=== PATIENT | female | born 1940 | race Caucasian/White ===

== ENCOUNTER 2020-08-13 11:24 | Outpatient (REF) | payer MEDICARE, BC, SELFPAY ==
--- NOTE | 2020-08-13 11:29 | MM_ITS ---
EXAMINATION: MM DIAGNOSTIC DIGITAL BREAST TOMOSYNTHESIS, BILATERAL CLINICAL INFORMATION: Probable benign fibroglandular density left breast noted on prior study. Additional views and ultrasound unremarkable. Due for yearly. The lifetime risk of breast cancer based on the Tyrer-Cuzick Model is under 3%. COMPARISON: Mammography: 08/19/2019, 08/12/2019, 06/21/2018, 05/28/2017, 05/10/2016, 04/26/2015, 07/02/2014, 12/04/2013, 12/01/2013 TECHNIQUE: Digital breast tomosynthesis is performed in both the craniocaudal and mediolateral oblique views along with computer-aided detection (CAD). Synthesized 2D images are generated from the tomosynthesis. FINDINGS: There are scattered areas of fibroglandular density (ACR BI-RADS breast composition Category b). There are no significant masses, abnormal calcifications, or other abnormalities. Parenchymal pattern is similar to prior studies. There is no developing density from remote exams. No interval mass or architectural abnormality or abnormal calcifications. Skin contours are smooth. Results are provided to the patient at time of visit by the technologist. MM/MM tomosynthesis diagnostic BI IMPRESSION: No significant changes from prior studies. ASSESSMENT: BI-RADS 2: Benign RECOMMENDATION: Routine annual mammography screening. This patient's information was entered into a reminder system with a target due date for their next mammogram.
== END 2020-08-13 11:25 | disposition home or self-care (01) ==
LOC: HO.MAMMO 11:24
PROVIDERS: Visit Provider Internal Medicine
DX: R92.2 Inconclusive mammogram (principal)
CPT/HCPCS: 77062; 77066

== ENCOUNTER 2021-01-21 08:18 | Outpatient (REF) | payer MEDICARE, BC, SELFPAY ==
[2021-01-21 09:44] LABS: Alanine Aminotransferase 19 U/L (0-31); Anion Gap 10 (12-20); Aspartate Amino Transferase 18 U/L (5-31); Blood Urea Nitrogen 18 mg/dL (9-16); Calcium 9.4 mg/dL (8.4-10.2); Carbon Dioxide 35 mmol/L (22-29); Chloride 101 mmol/L (96-108); Cholesterol 222 mg/dL; Estimated Glomerular Filt Rate > 60; Glucose Fasting 89 mg/dL (60-99); HDL Cholesterol 55 mg/dL; LDL Cholesterol Calculated 152 mg/dl; Potassium 4.2 mmol/L (3.3-5.1); Sodium 142 mmol/L (135-145); Triglycerides 79 mg/dL
[2021-01-21 10:06] LABS: Vitamin D 25-OH Total 66.5 ng/mL (>30)
== END 2021-01-21 08:19 | disposition home or self-care (01) ==
LOC: HO.LAB 08:18
PROVIDERS: PCP Internal Medicine; Visit Provider Internal Medicine
DX: E78.5 Hyperlipidemia, unspecified (principal); M81.0 Age-related osteoporosis without current pathological fracture; I10 Essential (primary) hypertension; Z78.0 Asymptomatic menopausal state
CPT/HCPCS: 36415; 80048; 80061; 82306; 84450; 84460

== ENCOUNTER 2021-05-27 07:33 | Outpatient (REF) | payer MEDICARE, SELFPAY ==
[2021-05-27 09:04] LABS: Alanine Aminotransferase 16 U/L (0-31); Aspartate Amino Transferase 17 U/L (5-31); Cholesterol 200 mg/dL; HDL Cholesterol 51 mg/dL; LDL Cholesterol Calculated 137 mg/dl; Triglycerides 60 mg/dL
== END 2021-05-27 07:34 | disposition home or self-care (01) ==
LOC: HO.LAB 07:33
PROVIDERS: PCP Internal Medicine; Visit Provider Internal Medicine
DX: E78.5 Hyperlipidemia, unspecified (principal); I10 Essential (primary) hypertension
CPT/HCPCS: 36415; 80061; 84450; 84460

== ENCOUNTER 2021-08-23 09:56 | Outpatient (REF) | payer MEDICARE, SELFPAY ==
--- NOTE | ~2021-08-23 | MM_ITS ---
EXAMINATION: MM SCREENING DIGITAL BREAST TOMOSYNTHESIS, BILATERAL CLINICAL INFORMATION: Screening. Asymptomatic. The lifetime risk of breast cancer based on the Tyrer-Cuzick Model is 2%. COMPARISON: Mammography: 08/13/2020, 08/19/2019, 08/12/2019, 06/21/2018, 05/28/2017 TECHNIQUE: Digital breast tomosynthesis is performed in both the craniocaudal and mediolateral oblique views along with computer-aided detection (CAD). Synthesized 2D images are generated from the tomosynthesis. FINDINGS: There are scattered areas of fibroglandular density (ACR BI-RADS breast composition Category b). There are no significant masses, abnormal calcifications, or other abnormalities. No developing density. No significant changes from prior studies. MM/MM tomosynthesis screening BI IMPRESSION: No mammographic evidence of malignancy. ASSESSMENT: BI-RADS 1: Negative RECOMMENDATION: Routine annual mammography screening. This patient's information was entered into a reminder system with a target due date for their next mammogram.
--- NOTE | ~2021-08-23 | MM_ITS ---
EXAMINATION: BONE DENSITOMETRY CLINICAL INDICATION: Other specified disorders of bone density and structure. COMPARISON: Previous BD dated 08/12/2019 and baseline BD dated 07/19/2007. TECHNIQUE: Using a [employer] DXA System (software version: 13.1) manufactured by [employer], dual-energy x-ray absorptiometry was performed of the lumbar spine and left hip. The images are of good technical quality. Summary results are attached. FINDINGS: AP SPINE L1-L4: Current: BMD 0.943 g/cm2, Z-score 0.2, T-score -2.0, osteopenia, 2.7% increase from previous, 5.2% increase from baseline (<5% change is not significant). Prior: BMD 0.918 g/cm2. Baseline: BMD 0.896 g/cm2. LEFT FEMUR, NECK: Current: BMD 0.802 g/cm2, Z-score 0.6, T-score -1.7, osteopenia. Prior: BMD 0.792 g/cm2. Baseline: BMD 0.791 g/cm2. LEFT FEMUR, TOTAL: Current: BMD 0.850 g/cm2, Z-score 0.9, T-score -1.3, osteopenia, 1.7% decrease from previous, 0.4% increase from baseline (<5% change is not significant). Prior: BMD 0.865 g/cm2. Baseline: BMD 0.847 g/cm2. IDENTIFIED RISK FACTORS: Menopause, thiazide. HISTORY OF FRACTURE: None listed. MEDICATIONS: Calcium supplements or multivitamin, vitamin D, bisphosphonates. MM/XR DEXA axial skeleton IMPRESSION: 1. DIAGNOSIS: Osteopenia based on the lowest T-score value of -2.0 in the lumbar spine applying World Health Organization criteria. 2. 10-YEAR FRACTURE RISK PREDICTION, FRAX: Major osteoporotic fracture (clinical spine, forearm, hip or shoulder) 13.3%. Hip fracture 3.5%. 3. Treatment Recommendations: NOF guidelines recommend consideration for treatment in postmenopausal women and men age 50 and older presenting with the following: -A hip or vertebral (clinical or morphometric) fracture. -T-score less than or equal to -2.5 at the femoral neck or spine after appropriate evaluation to exclude secondary causes. -Low bone mass at the hip or spine and a 10-year fracture probability by FRAX of greater than or equal to 3% for hip fracture or greater than or equal to 20% for major osteoporotic fracture based on the [place] adapted WHO algorithm. 4. Other Recommendations: All treatment decisions require clinical judgment and consideration of individual patient factors, including patient preferences, comorbidities, previous drug use, risk factors not captured in the FRAX model (e.g. frailty, falls, vitamin D deficiency, increased bone turnover, interval significant decline in bone density) and possible under or overestimation of fracture risk by FRAX. Additional medical evaluation for secondary cause of low bone mineral density may be appropriate. FUTURE SCAN RECOMMENDATION: People with diagnosed cases of osteoporosis or at high risk for fracture should have regular bone mineral density tests. For patients eligible for Medicare, routine testing is allowed once every 2 years. The testing frequency can be increased to one year for patients who have rapidly progressing disease, those who are receiving or discontinuing medical therapy to restore bone mass, or have additional risk factors.
== END 2021-08-23 09:57 | disposition home or self-care (01) ==
LOC: HO.MAMMO 09:56
PROVIDERS: Visit Provider Internal Medicine
DX: Z13.820 Encounter for screening for osteoporosis (principal); Z78.0 Asymptomatic menopausal state; Z12.31 Encounter for screening mammogram for malignant neoplasm of breast
CPT/HCPCS: 77063; 77067; 77080

== ENCOUNTER 2021-12-09 08:14 | Outpatient (REF) | payer MEDICARE, SELFPAY ==
[2021-12-09 10:05] LABS: Alanine Aminotransferase 18 U/L (0-31); Anion Gap 9 (12-20); Aspartate Amino Transferase 19 U/L (5-31); Blood Urea Nitrogen 18 mg/dL (9-16); Calcium 9.9 mg/dL (8.4-10.2); Carbon Dioxide 35 mmol/L (22-29); Chloride 103 mmol/L (96-108); Cholesterol 219 mg/dL; Estimated Glomerular Filt Rate > 60; Glucose Fasting 88 mg/dL (60-99); HDL Cholesterol 52 mg/dL; LDL Cholesterol Calculated 151 mg/dl; Potassium 4.5 mmol/L (3.3-5.1); Sodium 142 mmol/L (135-145); Triglycerides 83 mg/dL
[2021-12-09 10:15] LABS: Vitamin D 25-OH Total 69.2 ng/mL (>30)
== END 2021-12-09 08:15 | disposition home or self-care (01) ==
LOC: HO.LAB 08:14
PROVIDERS: PCP Internal Medicine; Visit Provider Internal Medicine
DX: E78.5 Hyperlipidemia, unspecified (principal); I10 Essential (primary) hypertension; M85.80 Other specified disorders of bone density and structure, unspecified site; Z78.0 Asymptomatic menopausal state
CPT/HCPCS: 36415; 80048; 80061; 82306; 84450; 84460

== ENCOUNTER 2022-06-10 08:27 | Outpatient (REF) | payer MEDICARE, SELFPAY ==
[2022-06-10 09:55] LABS: Alanine Aminotransferase 14 U/L (0-31); Anion Gap 16 (12-20); Aspartate Amino Transferase 18 U/L (5-31); Blood Urea Nitrogen 15 mg/dL (9-16); Calcium 9.2 mg/dL (8.4-10.2); Carbon Dioxide 29 mmol/L (22-29); Chloride 100 mmol/L (96-108); Cholesterol 194 mg/dL; Estimated Glomerular Filt Rate > 60; Glucose Fasting 85 mg/dL (60-99); HDL Cholesterol 54 mg/dL; LDL Cholesterol Calculated 129 mg/dl; Potassium 4.1 mmol/L (3.3-5.1); Sodium 141 mmol/L (135-145); Triglycerides 55 mg/dL
[2022-06-10 10:21] LABS: Vitamin D 25-OH Total 56.5 ng/mL (>30)
== END 2022-06-10 08:28 | disposition home or self-care (01) ==
LOC: HO.LAB 08:27
PROVIDERS: PCP Internal Medicine; Visit Provider Internal Medicine
DX: E78.5 Hyperlipidemia, unspecified (principal); I10 Essential (primary) hypertension; M85.80 Other specified disorders of bone density and structure, unspecified site; Z78.0 Asymptomatic menopausal state
CPT/HCPCS: 36415; 80048; 80061; 82306; 84450; 84460

== ENCOUNTER 2022-08-29 10:30 | Outpatient (REF) | payer MEDICARE, SELFPAY ==
--- NOTE | ~2022-08-29 | MM_ITS ---
EXAMINATION: MM SCREENING DIGITAL BREAST TOMOSYNTHESIS, BILATERAL CLINICAL INFORMATION: Screening. Asymptomatic. COMPARISON: Mammography: August 23, 2021 and studies dating back to May 10, 2016 TECHNIQUE: Digital breast tomosynthesis is performed in both the craniocaudal and mediolateral oblique views along with computer-aided detection (CAD). Synthesized 2D images are generated from the tomosynthesis. FINDINGS: The breasts are heterogeneously dense, which may obscure small masses (ACR BI-RADS breast composition Category c). There are no significant masses, abnormal calcifications, or other abnormalities. MM/MM tomosynthesis screening BI IMPRESSION: No significant changes from prior exam. ASSESSMENT: BI-RADS 1: Negative RECOMMENDATION: Routine annual mammography screening. This patient's information was entered into a reminder system with a target due date for their next mammogram.
== END 2022-08-29 10:31 | disposition home or self-care (01) ==
LOC: HO.MAMMO 10:30
PROVIDERS: Visit Provider Internal Medicine
DX: Z12.31 Encounter for screening mammogram for malignant neoplasm of breast (principal)
CPT/HCPCS: 77063; 77067

== ENCOUNTER 2023-05-26 07:37 | Outpatient (REF) | payer MEDICARE, SELFPAY ==
[2023-05-26 08:59] LABS: Alanine Aminotransferase 15 U/L (0-31); Anion Gap 15 (12-20); Aspartate Amino Transferase 17 U/L (5-31); Blood Urea Nitrogen 17 mg/dL (9-16); Calcium 9.2 mg/dL (8.4-10.2); Carbon Dioxide 28 mmol/L (22-29); Chloride 103 mmol/L (96-108); Cholesterol 199 mg/dL; Estimated Glomerular Filt Rate > 60; Glucose Fasting 83 mg/dL (60-99); HDL Cholesterol 52 mg/dL; LDL Cholesterol Calculated 133 mg/dl; Potassium 4.5 mmol/L (3.3-5.1); Sodium 141 mmol/L (135-145); Triglycerides 72 mg/dL
[2023-05-26 09:06] LABS: Vitamin D 25-OH Total 75.1 ng/mL (>30)
== END 2023-05-26 07:38 | disposition home or self-care (01) ==
LOC: HO.LAB 07:37
PROVIDERS: PCP Internal Medicine; Visit Provider Internal Medicine
DX: E78.5 Hyperlipidemia, unspecified (principal); I10 Essential (primary) hypertension; M85.80 Other specified disorders of bone density and structure, unspecified site; Z78.0 Asymptomatic menopausal state
CPT/HCPCS: 36415; 80048; 80061; 82306; 84450; 84460

== ENCOUNTER 2023-06-14 12:52 | Outpatient (AMB) | payer MEDICARE, SELFPAY ==
[2023-06-14 13:02] VITALS: BP 130/70; PULSE 76; O2SAT 96; BMI 21.2
--- NOTE | 2023-06-14 13:02 | AM.OFFVISMDC ---
Intake Vital Signs 06/14/23 13:02 Height 5 ft 3 in Weight 119 lb 8 oz BMI 21.2 BP 130/70 Blood Pressure Location Rt brachial Position Sitting Pulse 76 Pulse Source Pulse Oximeter Pulse Oximetry (%) 96 Oxygen Delivery Method Room Air Intake Visit Reasons: AWV G0439 Allergies No Known Allergies [No Known Allergies*] Allergy (Verified 06/14/23 13:20) Medication List - Last Reconciled 06/14/23 by Анна Cardenas MD amlodipine 2.5 mg PO DAILY aspirin 81 mg PO DAILY cholecalciferol (vitamin D3) 25 mcg PO DAILY fosinopril 40 mg PO DAILY hydrochlorothiazide 25 mg PO QAM lifitegrast 5% drps ophthalmic (eye) ONCE penciclovir 1% (Denavir) 1 appl topical Q2H PRN 4 days Do you need a note to return to daycare/school/sports/work: No HPI AWV G0439 HPI Details SWV ? 82-year-old lady with hypertension, osteopenia, hyperlipidemia currently controlled with diet, and history of recurrent cold sores, here today for her subsequent annual wellness visit she has been feeling well no complaints at present time, up-to-date with her lipid and fasting glucose screening, which came back normal 05/26/2023, is up-to-date with her screening mammogram, due again in August 2022, and last bone density scan was done in 2020 due again early next year. She has been having colonoscopy but as per Dr. Boogie no need for further screening. She is up-to-date with all her vaccinations including her COVID vaccine but has not yet had the new booster. ? Medical / Social History Reviewed? Past Medical History ?Yes . ? [facility] of Care / Care Team list updated ?Yes . ? Surgical/Hospitalization History ?Yes . ? Current Medications (including OTC and supplements) ?Yes . ? Family History ?Yes . ? Tobacco Control form ?Yes . ? AUDIT-C (Alcohol use) form ?Yes . ? Illicit drug use in Social History ?Yes . ? Current diagnosis of depression? ?No ? Appropriate PHQ2/PHQ9 completed ?Yes . ? Data entered by ?Work Order Detailer and reviewed by provider ? Fall Risk ? Fall History? Have you had any falls with injury in the past year? ?No . ? Have you had two or more falls in the past year? ?No . ? Fall Risk Assessment: ?No falls in the past year . ? HRA filled out by the patient, reviewed by Provider and scanned. ? AWV ? Balance? Romberg ?Yes . ? Tandem walk ?Yes . ? Walk and Turn ?Yes . ? Rise from sit to stand ?Yes . ?Vision? Corrective lens ?no ? Vision screen ? Up-to-date, sees Dr. Blount ?Hearing? Whisper test ?pass . ?Written Plan?Completed. See Patient Documents.? [facility] Medical History (Updated 06/14/23 @ 14:23 by Анна Cardenas MD) Cataracts, bilateral Female sterility Hyperlipidemia LDL goal <130 Hypertension Menopause Osteopenia Recurrent cold sores Tubular adenoma of colon Surgical History History of cataract surgery Family History Father No problems noted. Mother No problems noted. Maternal Grandmother No problems noted. Maternal Aunt Mental health disorder Social History Housing: House Alcohol intake: current Patient Tobacco Use Status: Never used Tobacco e-Cigarette/Vaping Use: Never Used Current occupational status: disabled Cognitive needs: No Hearing needs: No Vision needs: Yes Female Reproductive History Menstrual Date of Mammogram: 08/29/22 Questionnaire Medicare Wellness Checkup [age] What gender do you identify with?: female During the past 4 weeks, how much have you been bothered by emotional problems such as feeling anxious, depressed, irritable, sad or downhearted, and blue?: not at all During the past 4 weeks, has your physical & emotional health limited your social activities with family, friends, neighbors, or groups?: not at all During the past 4 weeks, how much bodily pain have you generally had?: very mild pain During the past 4 weeks, was someone available to help you if you needed & wanted help?: yes, as much as I wanted During the past 4 weeks, what was the hardest physical activity you could do for at least 2 minutes?: heavy Can you get to places out of walking distance without help? (For eg., can you travel alone on buses, taxis or drive your car?): Yes Can you go shopping for groceries or clothes without someone's help?: Yes Can you prepare your own meals?: Yes Can you do your housework without help?: Yes Because of any health problems, do you need the help of another person with your personal care needs such as eating, bathing, dressing or getting around the house?: No Can you handle your own money without help?: Yes During the past 4 weeks, how would you rate your health in general?: excellent During the past 4 weeks how have things been going for you?: very well; could hardly better Are you having difficulties driving your car?: no Do you always fasten your seat belt when you are in a car?: yes, usually During past 4 weeks, have you been bothered by the following: never: Falling or dizzy when standing up, Sexual problems?, Trouble eating well?, Teeth or denture problems? and Problems using the telephone? and seldom: Tiredness or fatigue? Have you fallen 2 or more times in the past year?: Yes Are you a smoker?: no During the past 4 weeks, how many drinks of wine, beer, or other alcoholic beverages did you have?: 2-5 drinks per week Do you exercise for about 20 minutes 3 or more times a week?: yes, most of the time Have you been given information to help with the following?: no: Hazards in your house that might hurt you? and no: Keeping track of your medications? How often do you have trouble taking medicines the way you have been told to take them?: I always take medicine as prescribed How confident are you that you can control & manage most of your health problems?: very confident What is your race?: White Mini Mental State Exam (MMSE) Orientation What is the (year) (season) (date) (day) (month)?: year (2022), season (Summer), date (06/14/2023), day () and month (May) Where are we (state) (county) (town or city) (hospital) (floor)?: state ([place]), [facility]), town or city ([place]) and hospital/clinic ([facility]) Score Score: 9 Activity of Daily Living Bathing - sponge bath, tub bath or shower: receives no assistance (gets in/out by self, if usual bathing means Dressing - getting clothes from closets & drawers, including inner/outer garments & fasteners.: gets clothes & gets completely dressed without help Toileting - going to the 'toilet room' for urine/bowel elimination & cleaning self/arranging clothes: goes to toilet room, cleans self, arranges clothes without help Transfer: moves in & out of bed and chair without help (may use support object) Continence: controls urination/bowel movements completely by self Feeding: feeds self without help Total Score: 0 Information obtained from: patient Using telephone: independent Traveling: independent Shopping: independent Preparing meals: independent Housework: independent Taking medicine: independent Managing money: independent Physical Exam Vital Signs: Last Vital Signs Pulse 76 06/14/23 13:02 BP 130/70 06/14/23 13:02 Pulse Ox 96 06/14/23 13:02 Oxygen Delivery Method Room Air 06/14/23 13:02 BMI result Body Mass Index 21.2 Results Reviewed Results Reviewed: ENTERED: 05/26/[address] [facility] [address]: ORDERED: Met Prof Fast, AST, ALT, Lipid Panel, Vitamin D 25-OH Test Result Flag Reference Site Sodium 141 135-145 mmol/L Potassium 4.5 3.3-5.1 mmol/L CL 103 96-108 mmol/L CO2 28 22-29 mmol/L Gap 15 12-20 BUN 17 H 9-16 mg/dL Creat 0.71 0.5-1.4 mg/dL EGFR > 60 NOTE: For -[place] individuals, multiply the result by 1.210. Chronic Kidney Disease: Estimated GFR < 60 mL/min/1.73m2 Severe Kidney Disease: Estimated GFR < 15 mL/min/1.73m2 FBS 83 60-99 mg/dL CA 9.2 8.4-10.2 mg/dL AST (GOT) 17 5-31 U/L ALT (GPT) 15 0-31 U/L Triglyceride 72 mg/dL Desirable Triglyceride: less than 150 mg/dL Borderline High Triglyceride 150-199 mg/dL High Triglyceride: 200-499 mg/dL Very High Triglyceride: greater than or equal to 5OO mg/dL Chol 199 mg/dL Desirable Cholesterol: less than 200 mg/dL Borderline High Cholesterol: 200-239 mg/dL High Cholesterol: greater than 239 mg/dL LDL Calculated 133 mg/dl Desirable LDL: less than 100 mg/dL Near Optimal/Above Optimal LDL: 110-129 mg/dL Borderline High LDL: 130-159 mg/dL High LDL: 160-189 mg/dL Very High LDL: greater than or equal to 190 mg/dL HDL 52 mg/dL Desirable HDL: greater than 40 mg/dL Note: This HDL assay may give artificially low results in patients with liver disease. Vit D 25-OH Tot 75.1 >30 ng/mL Health Based Reference Values* < 20 ng/mL Deficient 20-30 ng/mL Insufficient > 30 ng/mL Sufficient Assessment & Plan Assessment & Plan (1) Encounter for subsequent annual wellness visit (AWV) in Medicare patient: Code(s): Z00.00 - Encounter for general adult medical examination without abnormal findings Plan: Medical wellness checklist reviewed, updated in discussed with patient. Reminded to get her COVID booster and yearly flu shot (2) Hyperlipidemia LDL goal <130: Code(s): E78.5 - Hyperlipidemia, unspecified Plan: Fasting lipids are within normal limits, continue with regular exercise and healthy diet, attends the osteoporosis exercise class at [facility] (3) Osteopenia: Code(s): M85.80 - Other specified disorders of bone density and structure, unspecified site Plan: Recheck another bone density scan next year continue with regular weight-bearing exercise, taking adequate calcium from dietary sources and vitamin-D supplement (4) Recurrent cold sores: 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 Continue with frozen approve 40 mg daily and hydrochlorothiazide 25 mg in the morning and amlodipine 2.5 mg daily. Reinforced importance of following a low sodium diet, getting regular exercise, and lowering stress levels. (6) Advanced directives, counseling/discussion: Code(s): Z71.89 - Other specified counseling Plan: Initiated the conversation about Advanced Directives. Advanced Directives help patients prepare for current and future decisions about their medical treatment and place of care. Discussed with patient that it is a process where a patients current condition and prognosis are reviewed, their wishes for information regarding their illness are elicited, and likely medical dilemmas are presented and options discussed. MOLST and healthcare proxy form already completed and scanned into medic record. These forms can be amended as needed, reviewed yearly and make changes as needed Orders: Orders Alanine Aminotransferase 12/17/23 E78.5 - Hyperlipidemia, unspecified, I10 - Essential (primary) hypertension, M85.80 - Other specified disorders of bone density and structure, unspecified site, Z78.0 - Asymptomatic menopausal state Aspartate Amino Transferase 02/26/24 E78.5 - Hyperlipidemia, unspecified, I10 - Essential (primary) hypertension, M85.80 - Other specified disorders of bone density and structure, unspecified site, Z78.0 - Asymptomatic menopausal state Basic Metabolic Panel Fasting 12/17/23 E78.5 - Hyperlipidemia, unspecified, I10 - Essential (primary) hypertension, M85.80 - Other specified disorders of bone density and structure, unspecified site, Z78.0 - Asymptomatic menopausal state Lipid Panel 12/17/23 E78.5 - Hyperlipidemia, unspecified, I10 - Essential (primary) hypertension, M85.80 - Other specified disorders of bone density and structure, unspecified site, Z78.0 - Asymptomatic menopausal state Vitamin D 25-OH Total 12/17/23 E78.5 - Hyperlipidemia, unspecified, I10 - Essential (primary) hypertension, M85.80 - Other specified disorders of bone density and structure, unspecified site, Z78.0 - Asymptomatic menopausal state Coding Level of Care Code Medicare Subsequent (G0439) Diagnoses Encounter for subsequent annual wellness visit (AWV) in Medicare patient Z00.00 Hyperlipidemia LDL goal <130 E78.5 Osteopenia M85.80 Recurrent cold sores B00.1 Hypertension I10 Advanced directives, counseling/discussion Z71.89 CPT Codes Advance Care Planning - Time spent: 16-45 minutes ([id number]) Advance Care Planning Advance Care Planning discussion: Completed/Scanned Date of discussion: 06/14/23 Who was present: Patient Forms completed: Health Care Proxy and MOLST Time spent: 16-45 minutes
== END 2023-06-14 13:53 | disposition home or self-care (01) ==
PROVIDERS: Visit Provider Internal Medicine
DX: Z00.00 Encounter for general adult medical examination without abnormal findings (principal); I10 Essential (primary) hypertension; E78.5 Hyperlipidemia, unspecified; M85.80 Other specified disorders of bone density and structure, unspecified site; B00.1 Herpesviral vesicular dermatitis; Z71.89 Other specified counseling
CPT/HCPCS: 99497; G0439

== ENCOUNTER 2023-09-04 10:18 | Outpatient (REF) | payer MEDICARE, SELFPAY | END 2023-09-04 10:19 | disposition home or self-care (01) | LOC: HO.MAMMO 10:18 | PROVIDERS: Visit Provider Internal Medicine | DX: Z12.31 Encounter for screening mammogram for malignant neoplasm of breast (principal) | CPT/HCPCS: 77063; 77067 ==

== ENCOUNTER → 2023-09-04 10:30 | Outpatient (BNV) | payer MEDICARE, SELFPAY | PROVIDERS: Visit Provider Radiology Diagnostic Radiology | DX: Z12.31 Encounter for screening mammogram for malignant neoplasm of breast (principal) | CPT/HCPCS: 77063; 77067 ==

== ENCOUNTER 2023-11-28 09:58 | Outpatient (REF) | payer MEDICARE, SELFPAY ==
--- NOTE | ~2023-11-28 | MM_ITS ---
EXAMINATION: BONE DENSITOMETRY CLINICAL INDICATION: Osteopenia. COMPARISON: Previous BD dated 08/23/2021 and baseline BD dated 07/19/2007. TECHNIQUE: Using a [employer] DXA System (software version: 13.1) manufactured by [employer], dual-energy x-ray absorptiometry was performed of the lumbar spine and left hip. The images are of good technical quality. Summary results are attached. FINDINGS: LEFT FEMUR, NECK: Current: BMD 0.770 g/cm2, Z-score 0.5, T-score -1.9, osteopenia. Prior: BMD 0.802 g/cm2. Baseline: BMD 0.791 g/cm2. LEFT FEMUR, TOTAL: Current: BMD 0.849 g/cm2, Z-score 1.1, T-score -1.3, osteopenia, 0.1% decrease from previous, 0.2% increase from baseline (<5% change is not significant). Prior: BMD 0.850 g/cm2. Baseline: BMD 0.847 g/cm2. AP SPINE L1-L4: Current: BMD 0.843 g/cm2, Z-score -0.6, T-score -2.8, osteoporosis, 10.6% decrease from previous, 5.9% decrease from baseline (<5% change is not significant). Prior: BMD 0.943 g/cm2. Baseline: BMD 0.896 g/cm2. IDENTIFIED RISK FACTORS: Menopause, height loss, thiazide. HISTORY OF FRACTURE: None listed. MEDICATIONS: Calcium, vitamin D, bisphosphonate. MM/XR DEXA axial skeleton IMPRESSION: 1. DIAGNOSIS: Osteoporosis based on the lowest T-score value of -2.8 in the lumbar spine applying World Health Organization criteria. 2. 10-YEAR FRACTURE RISK PREDICTION, FRAX: According to the guidelines, FRAX calculation should only be performed on patients in the osteopenia bone density category. Therefore, FRAX was not performed on this patient. 3. Treatment Recommendations: NOF guidelines recommend consideration for treatment in postmenopausal women and men age 50 and older presenting with the following: -A hip or vertebral (clinical or morphometric) fracture. -T-score less than or equal to -2.5 at the femoral neck or spine after appropriate evaluation to exclude secondary causes. -Low bone mass at the hip or spine and a 10-year fracture probability by FRAX of greater than or equal to 3% for hip fracture or greater than or equal to 20% for major osteoporotic fracture based on the [place] adapted WHO algorithm. 4. Other Recommendations: All treatment decisions require clinical judgment and consideration of individual patient factors, including patient preferences, comorbidities, previous drug use, risk factors not captured in the FRAX model (e.g. frailty, falls, vitamin D deficiency, increased bone turnover, interval significant decline in bone density) and possible under or overestimation of fracture risk by FRAX. Additional medical evaluation for secondary cause of low bone mineral density may be appropriate. FUTURE SCAN RECOMMENDATION: People with diagnosed cases of osteoporosis or at high risk for fracture should have regular bone mineral density tests. For patients eligible for Medicare, routine testing is allowed once every 2 years. The testing frequency can be increased to one year for patients who have rapidly progressing disease, those who are receiving or discontinuing medical therapy to restore bone mass, or have additional risk factors.
== END 2023-11-28 09:59 | disposition home or self-care (01) ==
LOC: HO.MAMMO 09:58
PROVIDERS: PCP Internal Medicine; Visit Provider Internal Medicine
DX: Z13.820 Encounter for screening for osteoporosis (principal); M85.80 Other specified disorders of bone density and structure, unspecified site; Z78.0 Asymptomatic menopausal state
CPT/HCPCS: 77080

== ENCOUNTER 2023-11-30 07:58 | Outpatient (REF) | payer MEDICARE, SELFPAY ==
[2023-11-30 09:17] LABS: Alanine Aminotransferase 18 U/L (0-31); Anion Gap 12 (12-20); Aspartate Amino Transferase 17 U/L (5-31); Blood Urea Nitrogen 14 mg/dL (9-16); Calcium 9.5 mg/dL (8.4-10.2); Carbon Dioxide 31 mmol/L (22-29); Chloride 102 mmol/L (96-108); Cholesterol 209 mg/dL (<200); Estimated Glomerular Filt Rate > 60; Glucose Fasting 93 mg/dL (60-99); HDL Cholesterol 60 mg/dL (>40); LDL Cholesterol Calculated 137 mg/dL (<100); Potassium 4.1 mmol/L (3.3-5.1); Sodium 141 mmol/L (135-145); Triglycerides 62 mg/dL (<150)
[2023-11-30 09:33] LABS: Vitamin D 25-OH Total 62.5 ng/mL (>30)
== END 2023-11-30 07:59 | disposition home or self-care (01) ==
LOC: HO.LAB 07:58
PROVIDERS: PCP Internal Medicine; Visit Provider Internal Medicine
DX: E78.5 Hyperlipidemia, unspecified (principal); M85.80 Other specified disorders of bone density and structure, unspecified site; I10 Essential (primary) hypertension; Z78.0 Asymptomatic menopausal state
CPT/HCPCS: 36415; 80048; 80061; 82306; 84450; 84460

== ENCOUNTER 2023-12-10 11:15 | Outpatient (AMB) | payer MEDICARE, SELFPAY ==
[2023-12-10 11:17] VITALS: BP 144/66; PULSE 64; O2SAT 98; BMI 21.4
--- NOTE | 2023-12-10 11:17 | MHC.PC.OV ---
Vital Signs 12/10/23 11:17 Height 5 ft 3 in Weight 121 lb BMI 21.4 BP 144/66 H Blood Pressure Location Lt brachial Position Sitting Pulse 64 Pulse Source Pulse Oximeter Pulse Oximetry (%) 98 Oxygen Delivery Method Room Air Intake Visit Reasons: 6 mo. f/u Intake Note: Pt is here today for her 6 mo. f/u labs Allergies No Known Allergies [No Known Allergies*] Allergy (Verified 12/10/23 11:45) Medication List - Last Reconciled 12/10/23 by Анна Cardenas MD amlodipine 2.5 mg PO DAILY aspirin 81 mg PO DAILY cholecalciferol (vitamin D3) 25 mcg PO DAILY fosinopril 40 mg PO DAILY hydrochlorothiazide 25 mg PO QAM lifitegrast 5% drps ophthalmic (eye) ONCE penciclovir 1% (Denavir) 1 appl topical Q2H PRN 4 days Tobacco use date assessed: 12/10/23 Fall risk assessment: No Falls in past year Last assessed Fall Risk: 12/10/23 Dental Screening Dental Screen Date: 12/10/23 Did you have a dental visit in the last 12 months?: Yes Did you have a dental problem in the last 6 months where you did not have access to dental care?: Yes Was dental information given to patient?: Patient has dentist HPI 6 mo. f/u HPI Details 83-year-old lady with hypertension, hyperlipidemia, here today for follow-up. She has been taking her medications as directed, admits to not getting much exercise lately. Blood pressure a little higher today as compared to last check. She is also here to discuss results of her bone density scan done earlier this month go to which showed presence of osteoporosis now in her lumbar spine. No history of fracture [facility] [place] Medical History (Updated 02/07/24 @ 16:18 by Анна Cardenas MD) Osteoporosis of lumbar spine Hyperlipidemia LDL goal <130 Osteopenia Recurrent cold sores Menopause Tubular adenoma of colon Hypertension Cataracts, bilateral Female sterility Surgical History History of cataract surgery Family History Father No problems noted. Mother No problems noted. Maternal Grandmother No problems noted. Maternal Aunt Mental health disorder Social History Housing: House Alcohol intake: current Patient Tobacco Use Status: Never used Tobacco e-Cigarette/Vaping Use: Never Used Current occupational status: disabled Cognitive needs: No Hearing needs: No Vision needs: Yes Questionnaire PHQ-9 Over the last 2 weeks, how often have you been bothered by any of the following problems? 1. Little interest or pleasure in doing things: not at all 2. Feeling down, depressed, or hopeless: not at all 3. Trouble falling or staying asleep, or sleeping too much: not at all 4. Feeling tired or having little energy: not at all 5. Poor appetite or overeating: not at all 6. Feeling bad about yourself - or that you are a failure or have let yourself or your family down: not at all 7. Trouble concentrating on things, such as reading the newspaper or watching television: not at all 8. Moving or speaking so slowly that other people could have noticed. Or the opposite - being so fidgety or restless that you have been moving around a lot more than usual: not at all 9. Thoughts that you would be better off or of hurting yourself in some way: not at all Total score: 0 Depression Screening Interpretation: Negative Depression Screening Done: Yes 95360 - PHQ-9 Billing: Yes Source: Developed by Drs. Beau Rousseau, Patricia Lind, Elier Hudson and colleagues, with an educational rand from [email or web address]. Thrive Questionnaire Date Thrive assessed: 12/10/23 I am a: Patient What is your living situation today?: I have a steady place to live Within the past 12 months, did the food you bought not last and you didn't have the money to get more?: Never true Within the past 12 months, did you worry whether your food would run out before you got money to buy more?: Never true Do you have trouble paying for medicines?: No Do you have trouble getting transportation to medical appointments?: No Do you have trouble paying your heating and electricity bill?: No Do you have trouble taking care of your child, family member or friend?: No Do you have trouble with day-to-day activities such as bathing, preparing meals, shopping, managing finances, etc.?: No Are you currently unemployed and looking for a job?: No Are you interested in more education?: No Please select the resources that you would like help with: None Currently or been in a relationship where the following occur: no concerns reported THRIVE Score: 0 AUDIT C Alcohol Use Questionnaire (AUDIT-C) 1. How often do you have a drink containing alcohol?: 2-3 times a week 2. How many drinks containing alcohol do you have on a typical day when you are drinking?: 1 or 2 3. How often do you have six or more drinks on one occasion?: Never Total Score: 3 PAVEL-7 AMB Questionnaire PAVEL-7 Date PAVEL - 7 assessed: 12/10/23 Feeling nervous, anxious, or on edge: 1 = Several days Not being able to stop or control worryin = Not at all Worrying too much about different things: 0 = Not at all Trouble relaxin = Not at all Being so restless that it is hard to sit still: 0 = Not at all Becoming easily annoyed or irritable: 0 = Not at all Feeling afraid as if something awful might happen: 0 = Not at all Total PAVEL-7 score (0-4 normal; 5-9 mild; 10-14 moderate; 15-21 severe): 1 Source: Developed by Drs. Beau Rousseau, Patricia Lind, Elier Hudson and colleagues, with an educational rand from [email or web address]. PAVEL-7 Assessment Billing PAVEL-7 Assessment Tool: PAVEL-7 Assessment 98905 Review of Systems Const Reports no additional complaints and Denies headache(s) Eyes Denies change in vision ENT Denies ear discharge, Denies otalgia, Denies headache(s), Denies post nasal drip and Denies tinnitus Card Denies chest pain, Denies syncope, Denies rapid heart rate, Denies irregular heart rhythm, Reports palpitations (Occasional skipped beats) and Denies dyspnea on exertion Resp Denies dyspnea on exertion GI Reports no additional complaints Reports no additional complaints Musc Reports no additional complaints Neuro Denies syncope and Denies headache(s) Psych Reports no additional complaints Endo Reports palpitations (Occasional skipped beats) Vicente/Lymph Reports no additional complaints Aller/Immun Reports no additional complaints Physical exam (Primary Care) Vital Signs: Last Vital Signs Pulse 64 12/10/23 11:17 BP 144/66 H 12/10/23 11:17 Pulse Ox 98 12/10/23 11:17 Oxygen Delivery Method Room Air 12/10/23 11:17 BMI result Body Mass Index 21.4 Tobacco/Smoking Status: Tobacco use Status Tobacco use date assessed 12/10/23 12/10/23 11:19 Patient Tobacco Use Status Never used Tobacco 12/10/23 11:18 e-Cigarette/Vaping Use Never Used 12/10/23 11:18 PHQ-9: PHQ-9 Score PHQ-9: Total score 0 02/07/24 16:14 Depression Screening Interpretation: Negative Thrive Assessment: Date of Thrive Assessment Date Thrive assessed 12/10/23 12/10/23 12:16 Currently or been in a relationship where the following occur: no concerns reported Const Other: Alert oriented x3, no acute distress noted ambulatory normal gait Nutritional Appearance: average body habitus Orientation/consciousness: patient oriented x3 [facility] General nose exam: Normal external nose present Face and sinus: Yes face symmetric Mouth: Normal oral and palatal mucosa present and moist mucous membranes Eyes General: appearance normal, both eyes and all related structures Neck Neck: Yes full ROM, Yes no lymphadenopathy, Yes no meningeal signs and Yes supple Resp Auscultation: clear to auscultation bilaterally Cardio Other: S1-S2 present regular rate and rhythm GI Palpation (GI): Soft to palpation, nontender and no guarding Auscultation: normal bowel sounds General: Yes no CVA tenderness Back/Spine/Pelvis Back: no CVA tenderness and No back tenderness Skin General skin exam: no rashes or lesions noted Neuro General: patient oriented x3, gait normal, tone normal, moves all extremities, Normal light touch and pain sensation, no meningeal signs and normal sensation to monofilament Extrem General: Yes normal to inspection, Yes full ROM, Yes no joint enlargement, Yes no clubbing, cyanosis or edema and Yes normal gait Right upper extremity: normal to inspection, full ROM and no joint enlargement; no edema Results Reviewed Results Reviewed: ENTERED: 11/30/23-801 TANNER GASTON: ORDERED: Met Prof Fast, AST, ALT, Lipid Panel, Vitamin D 25-OH Test Result Flag Reference Sodium 141 135-145 mmol/L Potassium 4.1 3.3-5.1 mmol/L CL 102 96-108 mmol/L CO2 31 H 22-29 mmol/L Gap 12 12-20 BUN 14 9-16 mg/dL Creat 0.74 0.5-1.4 mg/dL EGFR > 60 NOTE: For -Citizen Of [place] individuals, multiply the result by 1.210. Chronic Kidney Disease: Estimated GFR < 60 mL/min/1.73m2 Severe Kidney Disease: Estimated GFR < 15 mL/min/1.73m2 FBS 93 60-99 mg/dL CA 9.5 8.4-10.2 mg/dL AST (GOT) 17 5-31 U/L ALT (GPT) 18 0-31 U/L Triglyceride 62 <150 mg/dL Desirable Triglyceride: less than 150 mg/dL Borderline High Triglyceride 150-199 mg/dL High Triglyceride: 200-499 mg/dL Very High Triglyceride: greater than or equal to 5OO mg/dL Cholesterol 209 H <200 mg/dL Desirable Cholesterol: less than 200 mg/dL Borderline High Cholesterol: 200-239 mg/dL High Cholesterol: greater than 239 mg/dL LDL Calculated 137 H <100 mg/dL Desirable LDL: less than 100 mg/dL Near Optimal/Above Optimal LDL: 110-129 mg/dL Borderline High LDL: 130-159 mg/dL High LDL: 160-189 mg/dL Very High LDL: greater than or equal to 190 mg/dL HDL 60 >40 mg/dL Desirable HDL: greater than 40 mg/dL Note: This HDL assay may give artificially low results in patients with liver disease. Vit D 25-OH Tot 62.5 >30 ng/mL Health Based Reference Values* < 20 ng/mL Deficient 20-30 ng/mL Insufficient > 30 ng/mL Sufficient Assessment and Plan Assessment & Plan (1) Hypertension: Code(s): I10 - Essential (primary) hypertension Qualifiers: Hypertension type: primary hypertension Qualified Code(s): I10 - Essential (primary) hypertension Plan: Will continue fosinopril 40 mg daily and hydrochlorothiazide 25 mg in the morning, and amlodipine 2.5 mg daily . Reinforced importance of following a low-salt diet and continuing with regular daily exercise. (2) Osteoporosis of lumbar spine: Code(s): M81.0 - Age-related osteoporosis without current pathological fracture Plan: Discussed results of latest bone density scan with patient, and treatment options, patient opted to start alendronate. Pt advised to upon waking up in am, take medication 30 minutes before first food/drink/med. and do not lay down for 1 hour after taking medication.. Discussed potential side effects with pt including but not limited to dysphagia, esophygitis and gastritis. Pt advised to stop medication and call office if developes any adverse side effects including dysphagia, esophygeal pain or abdominal pain. Ca and Vit D supplements if inadequate dietary intake. Repeat DEXA in a year . Continue taking vitamin-D 3 supplements at least 2000 units daily and adequate calcium from dietary sources in addition to doing regular weight-bearing exercise (3) Hyperlipidemia LDL goal <130: Code(s): E78.5 - Hyperlipidemia, unspecified Plan: Reviewed recent fasting lipid profile with patient with LDL cholesterol at 137 mg/dL. But HDL within normal limits as well as triglycerides. . Continue with a low-cholesterol diet and regular exercise, at least 30 minutes 3 to 4 times a week. Continue make healthy food choices, eat more fruits, vegetables, whole grains, wild caught fish and low-fat dairy. Limit amount of meat and fried or fatty food products, as well as processed foods and fast foods. Follow-up scheduled with repeat fasting lipid panel in 6 months. Medications: New alendronate 70 mg PO QWEEK 13 tabs 4RF 3 months M81.0 - Age-related osteoporosis without current pathological fracture Coding Level of Care Code Est Pt Level 4 (71890) Diagnoses Primary hypertension I10 Hypertension type: primary hypertension Osteoporosis of lumbar spine M81.0 Hyperlipidemia LDL goal <130 E78.5 Additional Codes PAVEL-7 Assessment Billing - PAVEL-7 Assessment Tool: PAVEL-7 Assessment 16512 ([id number])
== END 2023-12-10 12:15 | disposition home or self-care (01) ==
PROVIDERS: PCP Internal Medicine; Visit Provider Internal Medicine
DX: I10 Essential (primary) hypertension (principal); M81.0 Age-related osteoporosis without current pathological fracture; E78.5 Hyperlipidemia, unspecified
CPT/HCPCS: 99214

== ENCOUNTER 2024-05-31 07:55 | Outpatient (REF) | payer MEDICARE, SELFPAY ==
[2024-05-31 09:12] LABS: Alanine Aminotransferase 21 U/L (0-31); Anion Gap 11 (12-20); Aspartate Amino Transferase 21 U/L (5-31); Blood Urea Nitrogen 18 mg/dL (9-16); Calcium 9.2 mg/dL (8.4-10.2); Carbon Dioxide 32 mmol/L (22-29); Chloride 103 mmol/L (96-108); Cholesterol 205 mg/dL (<200); Estimated Glomerular Filt Rate > 60; Glucose Fasting 94 mg/dL (60-99); HDL Cholesterol 58 mg/dL (>40); LDL Cholesterol Calculated 135 mg/dL (<100); Potassium 3.8 mmol/L (3.3-5.1); Sodium 142 mmol/L (135-145); Triglycerides 64 mg/dL (<150)
[2024-05-31 09:26] LABS: Vitamin D 25-OH Total 70.1 ng/mL (>30)
== END 2024-05-31 07:56 | disposition home or self-care (01) ==
LOC: HO.LAB 07:55
PROVIDERS: PCP Internal Medicine; Visit Provider Internal Medicine
DX: I10 Essential (primary) hypertension (principal); M81.0 Age-related osteoporosis without current pathological fracture; Z78.0 Asymptomatic menopausal state; M85.80 Other specified disorders of bone density and structure, unspecified site; E78.5 Hyperlipidemia, unspecified
CPT/HCPCS: 36415; 80048; 80061; 82306; 84450; 84460

== ENCOUNTER 2024-08-28 15:20 | Outpatient (AMB) | payer MEDICARE, SELFPAY ==
[2024-08-28 15:52] VITALS: BP 122/66; PULSE 61; O2SAT 97; BMI 22.0
--- NOTE | 2024-08-28 15:52 | MHC.PC.OV ---
Vital Signs 08/28/24 15:52 Height 5 ft 3 in Weight 124 lb BMI 22.0 BP 122/66 Blood Pressure Location Rt brachial Position Sitting Pulse 61 Pulse Source Pulse Oximeter Pulse Oximetry (%) 97 Oxygen Delivery Method Room Air Intake Visit Reasons: follow up HTN Intake Note: Pt is here today for her f/u 05/2024 Allergies No Known Allergies [No Known Allergies*] Allergy (Verified 08/31/24 14:06) Medication List - Last Reconciled 08/31/24 by Анна Cardenas MD alendronate 70 mg PO QWEEK 3 months amlodipine 2.5 mg PO DAILY aspirin 81 mg PO DAILY cholecalciferol (vitamin D3) 25 mcg PO DAILY fosinopril 40 mg PO DAILY hydrochlorothiazide 25 mg PO QAM lifitegrast 5% drps ophthalmic (eye) ONCE penciclovir 1% (Denavir) 1 appl topical Q2H PRN 4 days Tobacco use date assessed: 08/28/24 Fall risk assessment: No Falls in past year Last assessed Fall Risk: 08/28/24 Dental Screening Dental Screen Date: 08/28/24 Did you have a dental visit in the last 12 months?: Yes Did you have a dental problem in the last 6 months where you did not have access to dental care?: No Was dental information given to patient?: Patient has dentist HPI follow up HTN HPI Details 83-year-old lady with hypertension, hyperlipidemia, and osteoporosis here today for follow-up. She has been compliant with taking her medications, was started on alendronate on last visit with no adverse effects noted. She also states that she has been taking some vitamins to help with osteoporosis. Feels well with no complaints at present time. [facility] Medical History (Updated 08/31/24 @ 14:14 by Анна Cardenas MD) Encounter for monitoring alendronate therapy Osteoporosis of lumbar spine Hyperlipidemia LDL goal <130 Recurrent cold sores Menopause Tubular adenoma of colon Hypertension Cataracts, bilateral Female sterility Surgical History History of cataract surgery Family History Father No problems noted. Mother No problems noted. Maternal Grandmother No problems noted. Maternal Aunt Mental health disorder Social History Housing: House Alcohol intake: current Patient Tobacco Use Status: Never used Tobacco e-Cigarette/Vaping Use: Never Used Current occupational status: disabled Cognitive needs: No Hearing needs: No Vision needs: Yes Questionnaire PHQ-9 Over the last 2 weeks, how often have you been bothered by any of the following problems? 1. Little interest or pleasure in doing things: not at all 2. Feeling down, depressed, or hopeless: not at all 3. Trouble falling or staying asleep, or sleeping too much: not at all 4. Feeling tired or having little energy: not at all 5. Poor appetite or overeating: not at all 6. Feeling bad about yourself - or that you are a failure or have let yourself or your family down: not at all 7. Trouble concentrating on things, such as reading the newspaper or watching television: not at all 8. Moving or speaking so slowly that other people could have noticed. Or the opposite - being so fidgety or restless that you have been moving around a lot more than usual: not at all 9. Thoughts that you would be better off or of hurting yourself in some way: not at all Total score: 0 Depression Screening Interpretation: Negative Depression Screening Done: Yes 46851 - PHQ-9 Billing: Yes Source: Developed by Drs. Beau Rousseau, Patricia Lind, Elier Hudson and colleagues, with an educational rand from [employer]. Thrive Questionnaire Date Thrive assessed: 08/28/24 I am a: Patient What is your living situation today?: I have a steady place to live Within the past 12 months, did the food you bought not last and you didn't have the money to get more?: Never true Within the past 12 months, did you worry whether your food would run out before you got money to buy more?: Never true Do you have trouble paying for medicines?: No Do you have trouble getting transportation to medical appointments?: No Do you have trouble paying your heating and electricity bill?: No Do you have trouble taking care of your child, family member or friend?: No Do you have trouble with day-to-day activities such as bathing, preparing meals, shopping, managing finances, etc.?: No Are you currently unemployed and looking for a job?: No Are you interested in more education?: No Please select the resources that you would like help with: None Currently or been in a relationship where the following occur: No concerns reported THRIVE Score: 0 AUDIT C Alcohol Use Questionnaire (AUDIT-C) 1. How often do you have a drink containing alcohol?: 2-3 times a week 2. How many drinks containing alcohol do you have on a typical day when you are drinking?: 1 or 2 3. How often do you have six or more drinks on one occasion?: Never Total Score: 3 PAVEL-7 AMB Questionnaire PAVEL-7 Date PAVEL - 7 assessed: 08/28/24 Feeling nervous, anxious, or on edge: 0 = Not at all Not being able to stop or control worryin = Not at all Worrying too much about different things: 0 = Not at all Trouble relaxin = Not at all Being so restless that it is hard to sit still: 0 = Not at all Becoming easily annoyed or irritable: 0 = Not at all Feeling afraid as if something awful might happen: 0 = Not at all Total PAVEL-7 score (0-4 normal; 5-9 mild; 10-14 moderate; 15-21 severe): 0 Source: Developed by Drs. Beau Rousseau, Patricia Lind, Elier Hudson and colleagues, with an educational rand from [employer]. PAVEL-7 Assessment Billing PAVEL-7 Assessment Tool: PAVEL-7 Assessment 00447 Review of Systems Const Reports no additional complaints Eyes Denies change in vision ENT Reports no additional complaints Card Denies chest pain, Denies syncope, Denies rapid heart rate, Denies irregular heart rhythm and Denies dyspnea on exertion Resp Denies dyspnea on exertion GI Reports no additional complaints Reports no additional complaints Musc Reports no additional complaints Neuro Denies syncope Psych Reports no additional complaints Vicente/Lymph Reports no additional complaints Aller/Immun Reports no additional complaints Physical exam (Primary Care) Vital Signs: Last Vital Signs Pulse 61 08/28/24 15:52 BP 122/66 08/28/24 15:52 Pulse Ox 97 08/28/24 15:52 Oxygen Delivery Method Room Air 08/28/24 15:52 BMI result Body Mass Index 22.0 Tobacco/Smoking Status: Tobacco use Status Tobacco use date assessed 08/28/24 08/28/24 15:56 Patient Tobacco Use Status Never used Tobacco 08/28/24 15:56 e-Cigarette/Vaping Use Never Used 08/28/24 15:56 PHQ-9: PHQ-9 Score PHQ-9: Total score 0 08/28/24 16:27 Depression Screening Interpretation: Negative Thrive Assessment: Date of Thrive Assessment Date Thrive assessed 08/28/24 08/28/24 15:56 Currently or been in a relationship where the following occur: No concerns reported Const Other: Alert oriented x3, no acute distress noted ambulatory normal gait Nutritional Appearance: average body habitus Orientation/consciousness: patient oriented x3 [facility] General nose exam: Normal external nose present Face and sinus: Yes face symmetric Mouth: Normal oral and palatal mucosa present and moist mucous membranes Eyes General: appearance normal, both eyes and all related structures Neck Neck: Yes full ROM, Yes no lymphadenopathy and Yes supple Resp Auscultation: clear to auscultation bilaterally Cardio Other: S1-S2 present regular rate and rhythm GI Palpation (GI): Soft to palpation, nontender and no guarding Auscultation: normal bowel sounds General: Yes no CVA tenderness Back/Spine/Pelvis Back: no CVA tenderness and No back tenderness Skin General skin exam: no rashes or lesions noted Neuro General: patient oriented x3, gait normal, tone normal, moves all extremities and Normal light touch and pain sensation Extrem General: Yes normal to inspection, Yes full ROM, Yes no joint enlargement, Yes no clubbing, cyanosis or edema and Yes normal gait Right upper extremity: normal to inspection, full ROM and no joint enlargement; no edema Coding Level of Care Code Est Pt Level 4 (16605) Complex EM visit Add On G2211 Diagnoses Osteoporosis of lumbar spine M81.0 Encounter for monitoring alendronate therapy Z51.81; Z79.83 Dyslipidemia E78.5 Primary hypertension I10 Hypertension type: primary hypertension Additional Codes PHQ-9 - 01623 - PHQ-9 Billing: Yes ([id number]) PAVEL-7 Assessment Billing - PAVEL-7 Assessment Tool: PAVEL-7 Assessment 17198 ([id number]) Assessment & Plan Assessment & Plan (1) Osteoporosis of lumbar spine: Code(s): M81.0 - Age-related osteoporosis without current pathological fracture Category: Medical Plan: Continue alendronate, weight-bearing exercise, calcium and vitamin-D supplements. 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 Continue with low-cholesterol diet and regular exercise, at least 30 minutes 3 to 4 times a week. Repeat fasting lipid panel ordered (4) Hypertension: Code(s): I10 - Essential (primary) hypertension Category: Medical Qualifiers: Hypertension type: primary hypertension Qualified Code(s): I10 - Essential (primary) hypertension Plan: Blood pressure at goal of less than 130/80. Continue with current medication. Reinforced importance of following a low sodium diet, getting regular exercise, and lowering stress levels. 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 Aspartate Amino Transferase 08/28/24 E78.5 - Hyperlipidemia, unspecified, I10 - Essential (primary) hypertension, M81.0 - Age-related osteoporosis without current pathological fracture, Z51.81 - Encounter for therapeutic drug level monitoring, Z78.0 - Asymptomatic menopausal state, Z79.83 - [facility] (current) use of bisphosphonates XR DEXA axial skeleton 11/30/24 M81.0 - Age-related osteoporosis without current pathological fracture, Z51.81 - Encounter for therapeutic drug level monitoring, 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 Vitamin D 25-OH Total 08/28/24 E78.5 - Hyperlipidemia, unspecified, I10 - Essential (primary) hypertension, M81.0 - Age-related osteoporosis without current pathological fracture, Z51.81 - Encounter for therapeutic drug level monitoring, Z78.0 - Asymptomatic menopausal state, 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 Alanine Aminotransferase 08/28/24 E78.5 - Hyperlipidemia, unspecified, I10 - Essential (primary) hypertension, M81.0 - Age-related osteoporosis without current pathological fracture, Z51.81 - Encounter for therapeutic drug level monitoring, Z78.0 - Asymptomatic menopausal state, 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
== END 2024-08-28 16:55 | disposition home or self-care (01) ==
LOC: HO.HMCC 15:20
PROVIDERS: PCP Internal Medicine; Visit Provider Internal Medicine
DX: M81.0 Age-related osteoporosis without current pathological fracture (principal); Z51.81 Encounter for therapeutic drug level monitoring; Z79.83 Long term (current) use of bisphosphonates; E78.5 Hyperlipidemia, unspecified; I10 Essential (primary) hypertension

== ENCOUNTER → 2024-08-28 15:20 | Outpatient (BNVA) | payer MEDICARE, SELFPAY | PROVIDERS: PCP Internal Medicine; Visit Provider Internal Medicine | DX: M81.0 Age-related osteoporosis without current pathological fracture (principal); E78.5 Hyperlipidemia, unspecified; I10 Essential (primary) hypertension; Z79.83 Long term (current) use of bisphosphonates | CPT/HCPCS: 96127; 99212 ==

== ENCOUNTER 2024-10-28 11:37 | Outpatient (REF) | payer MEDICARE, SELFPAY ==
--- NOTE | ~2024-10-28 | MM_ITS ---
EXAMINATION: MM SCREENING DIGITAL BREAST TOMOSYNTHESIS, BILATERAL CLINICAL INFORMATION: Screening. Asymptomatic. COMPARISON: Mammography: Comparison is made with available priors TECHNIQUE: Digital breast mammography with tomosynthesis is performed in both the craniocaudal and mediolateral oblique views along with computer-aided detection (CAD). FINDINGS: There are scattered areas of fibroglandular density (ACR BI-RADS breast composition Category b). There are no significant masses, abnormal calcifications, or other abnormalities. MM/MM tomosynthesis screening BI IMPRESSION: No mammographic evidence of malignancy. ASSESSMENT: BI-RADS BI-RADS 1 - Negative RECOMMENDATION: Routine annual mammography screening. 1 year F/U This examination should not preclude the clinical evaluation of a suspicious palpable abnormality. This patient's information was entered into a reminder system with a target due date for their next mammogram. Electronically signed by: Regine Morris DO 11/03/2024 04:16 PM SUE
== END 2024-10-28 11:38 | disposition home or self-care (01) ==
LOC: HO.MAMMO 11:37
PROVIDERS: PCP Internal Medicine; Visit Provider Internal Medicine
DX: Z12.31 Encounter for screening mammogram for malignant neoplasm of breast (principal)
CPT/HCPCS: 77063; 77067

== ENCOUNTER → 2024-10-28 12:00 | Outpatient (BNV) | payer MEDICARE, SELFPAY | PROVIDERS: PCP Internal Medicine; Visit Provider Internal Medicine | DX: Z12.31 Encounter for screening mammogram for malignant neoplasm of breast (principal) | CPT/HCPCS: 77063; 77067 ==

== ENCOUNTER 2024-12-02 10:56 | Outpatient (REF) | payer MEDICARE, SELFPAY ==
--- NOTE | ~2024-12-02 | MM_ITS ---
EXAMINATION: DXA BONE DENSITY AXIAL HISTORY: Estrogen deficiency TECHNIQUE: Lazarus Effect Dual energy absorptiometry (DEXA) of the lumbar spine, total left hip, and femoral neck was performed. COMPARISON: Comparison is made with the prior examination dated 11/28/2023. FINDINGS: The bone mineral density of the lumbar spine is 0.915 with a T-score of -2.2, and a Z-score of 0.0. This represents a BMD change of 8.5% compared to the prior exam. This is statistically significant. The bone mineral density of the left total hip is 0.848 with a T-score of -1.3, and a Z-score of 1.1. This represents BMD change of -0.1% compared to the prior exam. This is not statistically significant. The bone mineral density of the left femoral neck is 0.820 with a T-score of -1.6, and a Z-score of 0.9. This represents BMD change of 6.5% compared to the prior exam. FRACTURE RISK: The FRAX index suggests a ten year probability of major osteoporotic fracture of 13.1%, and of hip fracture 3.6%. MM/XR DEXA axial skeleton IMPRESSION: Based on bone mineral density, and according to World Health Organization (WHO) criteria, the diagnosis is consistent with osteopenia. All bone density values are in grams per centimeter squared (g/cm2). Statistically, 68% of repeat scans fall within 1 SD (+/- 0.010 g/cm2 for AP spine L1-L4) and 1 SD (+/- 0.012 g/cm2 for femur total) FRAX is a trademark of the [employer]'s [place] for Metabolic Bone Disease, a World Health Organization (WHO) Collaborating Center. Electronically signed by: Beau Zhong MD 12/02/2024 03:42 PM [facility] [place]
== END 2024-12-02 10:57 | disposition home or self-care (01) ==
LOC: HO.MAMMO 10:56
PROVIDERS: PCP Internal Medicine; Visit Provider Internal Medicine
DX: M81.0 Age-related osteoporosis without current pathological fracture (principal); Z79.83 Long term (current) use of bisphosphonates
CPT/HCPCS: 77080

== ENCOUNTER → 2024-12-02 11:00 | Outpatient (BNV) | payer MEDICARE, SELFPAY | PROVIDERS: PCP Internal Medicine; Visit Provider Radiology Diagnostic Radiology | DX: E28.39 Other primary ovarian failure (principal) | CPT/HCPCS: 77080 ==

== ENCOUNTER 2024-12-27 07:59 | Outpatient (REF) | payer MEDICARE, SELFPAY ==
[2024-12-27 10:35] LABS: Alanine Aminotransferase 22 U/L (0-31); Anion Gap 10 (12-20); Aspartate Amino Transferase 21 U/L (5-31); Blood Urea Nitrogen 18 mg/dL (9-16); Calcium 8.9 mg/dL (8.4-10.2); Carbon Dioxide 31 mmol/L (22-29); Chloride 104 mmol/L (96-108); Cholesterol 212 mg/dL (<200); Estimated Glomerular Filt Rate > 60; Glucose Fasting 90 mg/dL (60-99); HDL Cholesterol 58 mg/dL (>40); LDL Cholesterol Calculated 144 mg/dL (<100); Potassium 3.8 mmol/L (3.3-5.1); Sodium 141 mmol/L (135-145); Triglycerides 52 mg/dL (<150)
[2024-12-27 10:38] LABS: Vitamin D 25-OH Total 69.5 ng/mL (>30)
== END 2024-12-27 08:00 | disposition home or self-care (01) ==
LOC: HO.LAB 07:59
PROVIDERS: PCP Internal Medicine; Visit Provider Internal Medicine
DX: M81.0 Age-related osteoporosis without current pathological fracture (principal); Z51.81 Encounter for therapeutic drug level monitoring; Z79.83 Long term (current) use of bisphosphonates; Z78.0 Asymptomatic menopausal state; I10 Essential (primary) hypertension; E78.5 Hyperlipidemia, unspecified
CPT/HCPCS: 36415; 80048; 80061; 82306; 84450; 84460

== ENCOUNTER 2025-01-01 08:36 | Outpatient (AMB) | payer MEDICARE, SELFPAY ==
--- NOTE | 2025-01-01 08:45 | MHC.PC.OV ---
Vital Signs 01/01/25 08:49 Height 5 ft 3 in Weight 125 lb BMI 22.1 BP 130/64 Blood Pressure Location Rt brachial Position Sitting Respiration 16 Pulse 65 Pulse Source Pulse Oximeter Temp 97.8 F Temp Source Oral Pulse Oximetry (%) 99 Oxygen Delivery Method Room Air Intake Visit Reasons: Annual PE Intake Note: Pt is here today for her PE: last mammogram 10/28/24, bone density scan 12/02/24 Allergies No Known Allergies [No Known Allergies*] Allergy (Verified 01/01/25 09:13) Medication List - Last Reconciled 01/01/25 by Анна Cardenas MD alendronate 70 mg PO QWEEK 3 months amlodipine 2.5 mg PO DAILY aspirin 81 mg PO DAILY cholecalciferol (vitamin D3) 25 mcg PO DAILY fosinopril 40 mg PO DAILY hydrochlorothiazide 25 mg PO QAM lifitegrast 5% drps ophthalmic (eye) ONCE penciclovir 1% (Denavir) 1 appl topical Q2H PRN 4 days Tobacco use date assessed: 01/01/25 Fall risk assessment: No Falls in past year Last assessed Fall Risk: 01/01/25 Dental Screening Dental Screen Date: 01/01/25 Did you have a dental visit in the last 12 months?: Yes Did you have a dental problem in the last 6 months where you did not have access to dental care?: No Was dental information given to patient?: Patient has dentist HPI Annual PE HPI Details 84 year-old lady with hypertension, hyperlipidemia, and osteoporosis here today for her physical examination. She is up-to-date with her screening mammogram, last done 10/28/24 with negative findings, bone density scan done 12/02/24 showed presence of osteopenia in multiple sites , with s statistically significant improvement since starting alendronate 70 mg once a week, and vitamin D3 supplementation. Last colonoscopy was done by Dr. Boogie in 2017 with no further testing indicated. Blood pressure stable and controlled on lisinopril, amlodipine and hydrochlorothiazide. [facility] Medical History (Updated 01/01/25 @ 09:45 by Анна Cardenas MD) Osteopenia of multiple sites Encounter for monitoring alendronate therapy Osteoporosis of lumbar spine Hyperlipidemia LDL goal <130 Recurrent cold sores Menopause Tubular adenoma of colon Hypertension Cataracts, bilateral Female sterility Surgical History History of cataract surgery Family History Father No problems noted. Mother No problems noted. Maternal Grandmother No problems noted. Maternal Aunt Mental health disorder Social History Housing: House Alcohol intake: current Patient Tobacco Use Status: Never used Tobacco e-Cigarette/Vaping Use: Never Used service: No Current occupational status: disabled Cognitive needs: No Hearing needs: No Vision needs: Yes Questionnaire PHQ-9 Over the last 2 weeks, how often have you been bothered by any of the following problems? 1. Little interest or pleasure in doing things: not at all 2. Feeling down, depressed, or hopeless: not at all 3. Trouble falling or staying asleep, or sleeping too much: not at all 4. Feeling tired or having little energy: not at all 5. Poor appetite or overeating: not at all 6. Feeling bad about yourself - or that you are a failure or have let yourself or your family down: not at all 7. Trouble concentrating on things, such as reading the newspaper or watching television: not at all 8. Moving or speaking so slowly that other people could have noticed. Or the opposite - being so fidgety or restless that you have been moving around a lot more than usual: not at all 9. Thoughts that you would be better off or of hurting yourself in some way: not at all Total score: 0 Depression Screening Interpretation: Negative Depression Screening Done: Yes 88507 - PHQ-9 Billing: Yes Source: Developed by Drs. Beau Rousseau, Patricia Lind, Elier Hudson and colleagues, with an educational rand from [employer]. Thrive Questionnaire Date Thrive assessed: 01/01/25 I am a: Patient What is your living situation today?: I have a steady place to live Within the past 12 months, did the food you bought not last and you didn't have the money to get more?: Never true Within the past 12 months, did you worry whether your food would run out before you got money to buy more?: Never true Do you have trouble paying for medicines?: No Do you have trouble getting transportation to medical appointments?: No Do you have trouble paying your heating and electricity bill?: No Do you have trouble taking care of your child, family member or friend?: No Do you have trouble with day-to-day activities such as bathing, preparing meals, shopping, managing finances, etc.?: No Are you currently unemployed and looking for a job?: No Are you interested in more education?: No Currently or been in a relationship where the following occur: No concerns reported THRIVE Score: 0 AUDIT C Alcohol Use Questionnaire (AUDIT-C) 1. How often do you have a drink containing alcohol?: Monthly or less 2. How many drinks containing alcohol do you have on a typical day when you are drinking?: 1 or 2 3. How often do you have six or more drinks on one occasion?: Never Total Score: 1 PAVEL-7 AMB Questionnaire PAVEL-7 Date PAVEL - 7 assessed: 01/01/25 Feeling nervous, anxious, or on edge: 0 = Not at all Not being able to stop or control worryin = Not at all Worrying too much about different things: 0 = Not at all Trouble relaxin = Not at all Being so restless that it is hard to sit still: 0 = Not at all Becoming easily annoyed or irritable: 0 = Not at all Feeling afraid as if something awful might happen: 0 = Not at all Total PAVEL-7 score (0-4 normal; 5-9 mild; 10-14 moderate; 15-21 severe): 0 Source: Developed by Drs. Beau Rousseau, Patricia Lind, Elier Hudson and colleagues, with an educational rand from [employer]. PAVEL-7 Assessment Billing PAVEL-7 Assessment Tool: PAVEL-7 Assessment 10689 Review of Systems Const Reports no additional complaints Eyes Denies change in vision ENT Reports no additional complaints Card Denies chest pain, Denies syncope, Denies rapid heart rate, Denies irregular heart rhythm and Denies dyspnea on exertion Resp Denies dyspnea on exertion GI Reports no additional complaints Reports no additional complaints Musc Reports no additional complaints Skin/Breast Denies breast pain, Denies breast mass, Denies pruritus, Denies lesions and Denies rash Neuro Denies syncope Psych Reports no additional complaints Endo Reports no additional complaints Vicente/Lymph Reports no additional complaints Aller/Immun Reports no additional complaints Physical exam (Primary Care) Vital Signs: Last Vital Signs Temp 97.8 F 01/01/25 08:49 Pulse 65 01/01/25 08:49 Resp 16 01/01/25 08:49 BP 130/64 01/01/25 08:49 Pulse Ox 99 01/01/25 08:49 Oxygen Delivery Method Room Air 01/01/25 08:49 BMI result Body Mass Index 22.1 Tobacco/Smoking Status: Tobacco use Status Tobacco use date assessed 01/01/25 01/01/25 08:54 Patient Tobacco Use Status Never used Tobacco 01/01/25 08:54 e-Cigarette/Vaping Use Never Used 01/01/25 08:54 PHQ-9: PHQ-9 Score PHQ-9: Total score 0 01/01/25 09:13 Depression Screening Interpretation: Negative Thrive Assessment: Date of Thrive Assessment Date Thrive assessed 01/01/25 01/01/25 08:54 Currently or been in a relationship where the following occur: No concerns reported Const Other: Alert oriented x3, no acute distress noted ambulatory normal gait Nutritional Appearance: average body habitus Orientation/consciousness: patient oriented x3 [facility] General nose exam: Normal external nose present Face and sinus: Yes face symmetric Mouth: Normal oral and palatal mucosa present and moist mucous membranes Eyes General: appearance normal, both eyes and all related structures Neck Neck: Yes full ROM, Yes no lymphadenopathy and Yes supple Resp Auscultation: clear to auscultation bilaterally Cardio Other: S1-S2 present regular rate and rhythm GI Palpation (GI): Soft to palpation, nontender and no guarding Auscultation: normal bowel sounds General: Yes no CVA tenderness Back/Spine/Pelvis Back: no CVA tenderness and No back tenderness Skin General skin exam: no rashes or lesions noted Neuro General: patient oriented x3, gait normal, tone normal, moves all extremities and Normal light touch and pain sensation Extrem General: Yes normal to inspection, Yes full ROM, Yes no joint enlargement, Yes no clubbing, cyanosis or edema and Yes normal gait Psych Appearance: grossly normal and well kempt Mental Status: mental status grossly normal Speech and movement: Normal speech and movement present Affect: normal affect Results Reviewed Results Reviewed: Name: Krystina Heredia Age/Sex: 84/F : 1940 Unit#: [id number] Attend Dr: Анна Cardenas MD Re12/27/24 Status: DEP [facility] Dis[facility]: SPEC : [id number] AIME: 12/27/24 STATUS: COMP REQ : [id number] RECD: 12/27/[address]: Анна Cardenas MD COMP: 12/27/24 ENTERED: 12/27/[address] [facility] [address]: ORDERED: Met Prof Fast, AST, ALT, Lipid Panel, Vitamin D 25-OH Test Result Flag Reference Sodium 141 135-145 mmol/L Potassium 3.8 3.3-5.1 mmol/L CL 104 96-108 mmol/L CO2 31 H 22-29 mmol/L Gap 10 L 12-20 BUN 18 H 9-16 mg/dL Creat 0.68 0.5-1.4 mg/dL eGFR > 60 Chronic Kidney Disease: Estimated GFR < 60 mL/min/1.73m2 Severe Kidney Disease: Estimated GFR < 15 mL/min/1.73m2 FBS 90 60-99 mg/dL CA 8.9 8.4-10.2 mg/dL AST (GOT) 21 5-31 U/L ALT (GPT) 22 0-31 U/L Triglyceride 52 <150 mg/dL Desirable Triglyceride: less than 150 mg/dL Borderline High Triglyceride 150-199 mg/dL High Triglyceride: 200-499 mg/dL Very High Triglyceride: greater than or equal to 5OO mg/dL Cholesterol 212 H <200 mg/dL Desirable Cholesterol: less than 200 mg/dL Borderline High Cholesterol: 200-239 mg/dL High Cholesterol: greater than 239 mg/dL LDL Calculated 144 H <100 mg/dL Desirable LDL: less than 100 mg/dL Near Optimal/Above Optimal LDL: 110-129 mg/dL Borderline High LDL: 130-159 mg/dL High LDL: 160-189 mg/dL Very High LDL: greater than or equal to 190 mg/dL HDL 58 >40 mg/dL Desirable HDL: greater than 40 mg/dL Note: This HDL assay may give artificially low results in patients with liver disease. Vit D 25-OH Tot 69.5 >30 ng/mL Health Based Reference Values* < 20 ng/mL Deficient 20-30 ng/mL Insufficient > 30 ng/mL Sufficient Coding Level of Care Code Est Pt Prev Care >65y(24981) Diagnoses Primary hypertension I10 Hypertension type: primary hypertension Hyperlipidemia LDL goal <130 E78.5 Encounter for monitoring alendronate therapy Z51.81; Z79.83 Osteopenia of multiple sites M85.89 Additional Codes PHQ-9 - 17765 - PHQ-9 Billing: Yes ([id number]) PAVEL-7 Assessment Billing - PAVEL-7 Assessment Tool: PAVLE-7 Assessment 12334 ([id number]) Assessment & Plan Assessment & Plan (1) Hypertension: Code(s): I10 - Essential (primary) hypertension Category: Medical Qualifiers: Hypertension type: primary hypertension Qualified Code(s): I10 - Essential (primary) hypertension Plan: Blood pressure at goal of less than 130/80. Continue with current medication. Reinforced importance of following a low sodium diet, getting regular exercise, and lowering stress levels. (2) Hyperlipidemia LDL goal <130: Code(s): E78.5 - Hyperlipidemia, unspecified Category: Medical Plan: Reviewed recent fasting lipid profile with patient with levels within normal limits . Continue adherence to low-cholesterol diet and regular exercise, at least 30 minutes 3 to 4 times a week. Advised patient to make healthy food choices, eat more fruits, vegetables, whole grains, wild caught fish and low-fat dairy. Limit amount of meat and fried or fatty food products, as well as processed foods and fast foods. (3) Encounter for monitoring alendronate therapy: Code(s): Z51.81 - Encounter for therapeutic drug level monitoring; Z79.83 - director long term care (current) use of bisphosphonates Category: Medical Plan: Bone density scan done 11/2024 showed improvement in bone density, will continue on alendronate, tolerating medication well, continue with vitamin-D 3 (4) Osteopenia of multiple sites: Code(s): M85.89 - Other specified disorders of bone density and structure, multiple sites Category: Medical Plan: Up-to-date with her bone density scan which showed improvement bone density Orders: Orders Lipid Panel 07/22/25 E78.5 - Hyperlipidemia, unspecified, I10 - Essential (primary) hypertension, M85.89 - Other specified disorders of bone density and structure, multiple sites, Z51.81 - Encounter for therapeutic drug level monitoring, Z78.0 - Asymptomatic menopausal state, Z79.83 - penitentiary (current) use of bisphosphonates Aspartate Amino Transferase 07/22/25 E78.5 - Hyperlipidemia, unspecified, I10 - Essential (primary) hypertension, M85.89 - Other specified disorders of bone density and structure, multiple sites, Z51.81 - Encounter for therapeutic drug level monitoring, Z78.0 - Asymptomatic menopausal state, Z79.83 - penitentiary (current) use of bisphosphonates Vitamin D 25-OH Total 07/22/25 E78.5 - Hyperlipidemia, unspecified, I10 - Essential (primary) hypertension, M85.89 - Other specified disorders of bone density and structure, multiple sites, Z51.81 - Encounter for therapeutic drug level monitoring, Z78.0 - Asymptomatic menopausal state, Z79.83 - penitentiary (current) use of bisphosphonates Alanine Aminotransferase 07/22/25 E78.5 - Hyperlipidemia, unspecified, I10 - Essential (primary) hypertension, M85.89 - Other specified disorders of bone density and structure, multiple sites, Z51.81 - Encounter for therapeutic drug level monitoring, Z78.0 - Asymptomatic menopausal state, Z79.83 - director long term care (current) use of bisphosphonates Basic Metabolic Panel Fasting 07/22/25 E78.5 - Hyperlipidemia, unspecified, I10 - Essential (primary) hypertension, M85.89 - Other specified disorders of bone density and structure, multiple sites, Z51.81 - Encounter for therapeutic drug level monitoring, Z78.0 - Asymptomatic menopausal state, Z79.83 - director long term care (current) use of bisphosphonates
[2025-01-01 08:49] VITALS: BP 130/64; PULSE 65; RESP 16; TEMP 36.6; O2SAT 99; BMI 22.1
== END 2025-01-01 09:59 | disposition home or self-care (01) ==
LOC: HO.HMCC 08:36
PROVIDERS: PCP Internal Medicine; Visit Provider Internal Medicine
DX: Z00.00 Encounter for general adult medical examination without abnormal findings (principal); I10 Essential (primary) hypertension; E78.5 Hyperlipidemia, unspecified; Z51.81 Encounter for therapeutic drug level monitoring; Z79.83 Long term (current) use of bisphosphonates; M85.89 Other specified disorders of bone density and structure, multiple sites

== ENCOUNTER → 2025-01-01 08:36 | Outpatient (BNVA) | payer MEDICARE, SELFPAY | PROVIDERS: PCP Internal Medicine; Visit Provider Internal Medicine | DX: I10 Essential (primary) hypertension (principal); E78.5 Hyperlipidemia, unspecified; M85.89 Other specified disorders of bone density and structure, multiple sites; Z51.81 Encounter for therapeutic drug level monitoring; Z79.83 Long term (current) use of bisphosphonates | CPT/HCPCS: 96127; 99397 ==

== ENCOUNTER 2025-05-18 14:15 | Outpatient (AMB) | payer MEDICARE, SELFPAY ==
--- OUTSIDE RECORDS SUMMARY | 2025-05-18 15:01 | XMS_ITS | Patient Health Record ---
Author Organization [facility] Address [address] [place] [address] Care Team Providers Care Pigment Mixer Name Role Phone Theresa GALLAGHER, Анна Primary Care Provider Beau Lucia [phone] Reason For Referral No Information Medications Medication SIG (Take, Route, Frequency, Duration) Notes Start Date End Date Status Aspirin Adult Low Dose 81 MG 1 tablet Or ally Once a day Active hydroCHLOROthiazide 12.5 MG 1 tablet Ora lly Once a day Active Fosinopril Sodium 40 MG 1 tablet Orally Once a day Active Problems Problem Type SNOMED Code ICD Code Onset Dates Problem Status W/U Status Risk Notes Problem 179234099 Encounter for screening for malignant neoplasm of colon (Z12.11) Active confirmed Problem 779985842 History of adenomatous polyp of colon (Z86.010) Active confirmed Problem Screening for malignant neoplasm of rectum (930531397) Encounter for screening for malignant neoplasm of rectum (Z12.12) Active confirmed Problem 489969280 Long-term use of aspirin therapy (Z79.82) Active confirmed Plan Of Treatment Future Test Test Name Order Date COLONOSCOPY 08/15/2016 Insurance Providers Payer Name Payer Address Payer Phone Subscriber Number Group Number Insured Name Patient Relationship to Insured Coverage Start Date Coverage End Date [place] [address] [place] [address] [id number] LAUREN HEREDIA Self - patient is the insured [facility] [address] [place], [place] [id number] LAUREN HEREDIA Self - patient is the insured Medical (General) History Medical History History ICD Code Colonoscopy 12-14-2010--2 tub ular adenomas removed, sigmoid diverticulosis, internal hemorrhoids; negative colonoscopy in 2003 Denies LA,DM,CVA,Lung disease,renal dise ase Hypertension Vertigo 05/2016 Surgical History Surgery Date(Month/Year) Laparoscopy for fertility reasons
[2025-05-18 15:10] VITALS: BP 135/64; PULSE 60; TEMP 36.7; O2SAT 98; BMI 21.5
--- NOTE | 2025-05-18 15:10 | AM.OFFWIN_ITS ---
Intake Vital Signs 3 05/18/25 15:10 Height 5 ft 3 in Weight 121 lb 6 oz BMI 21.5 BP 135/64 Blood Pressure Location Lt brachial Position Sitting Pulse 60 Pulse Source Pulse Oximeter Temp 98.1 F Temp Source Oral Pulse Oximetry (%) 98 Oxygen Delivery Method Room Air Intake Visit Reasons: EP-rt leg sore Patient Tobacco Use Status: Never used Tobacco Carbonizer Tester Required: No Is last menstrual period known: No Post menopausal: Yes Patient : No Allergies No Known Allergies (No Known Allergies*) Allergy (Verified 05/18/25 15:15) Do you need a note to return to daycare/school/sports/work: No HPI HPI Comments 2 History of Present Illness0 Details 84 y/o Female patient who presents to [facility] walk in clinic with c/o Small Lesion on the back/Calf of right lower leg. Pt noticed it 4 months ago - no changes to size just getting darker in color. Denies any pain around the area. Denies Bleeding oe oozing, mild itchiness. The lesion is ~ 1.5 cm with irregular boarders, dark in color and Flat. [facility] Medical History (Updated 05/18/25 @ 15:55 by Carol Batres NP) Skin lesion of right leg Osteopenia of multiple sites Encounter for monitoring alendronate therapy Osteoporosis of lumbar spine Hyperlipidemia LDL goal <130 Recurrent cold sores Menopause Tubular adenoma of colon Hypertension Cataracts, bilateral Female sterility Surgical History History of cataract surgery Family History Father No problems noted. Mother No problems noted. Maternal Grandmother No problems noted. Maternal Aunt Mental health disorder Social History Housing: House Alcohol intake: current Patient Tobacco Use Status: Never used Tobacco e-Cigarette/Vaping Use: Never Used Patient : No service: No Current occupational status: disabled Cognitive needs: No Hearing needs: No Vision needs: Yes Review of Systems Const All systems reviewed & are unremarkable except as noted in HPI and below Physical Exam Vital Signs: Last Vital Signs Temp 98.1 F 05/18/25 15:10 Pulse 60 05/18/25 15:10 BP 135/64 05/18/25 15:10 Pulse Ox 98 05/18/25 15:10 Oxygen Delivery Method Room Air 05/18/25 15:10 BMI result Body Mass Index 21.5 Const General: no acute distress Orientation/consciousness: patient oriented x3 Skin Other: Full body images: 2 1. The lesion is ~ 1.5 cm with irregular boarders, dark in color and Flat. Neuro General: patient oriented x3 Psych Speech and movement: Normal speech and movement present Assessment & Plan Assessment & Plan (1) Skin lesion of right leg: Code(s): L98.9 - Disorder of the skin and subcutaneous tissue, unspecified Plan: DDx's: Melanona vs BCC vs Benign lesions Placed referral to [facility] for urgent visit. Orders: Referrals 2 Dermatology Referral L98.9 - Disorder of the skin and subcutaneous tissue, unspecified Coding Level of Care Code Est Pt Level 4 (01989) Diagnoses Skin lesion of right leg L98.9 Time Spent (min) 20
== END 2025-05-18 16:06 | disposition home or self-care (01) ==
PROVIDERS: PCP Internal Medicine; Visit Provider Nurse Practitioner Family
DX: L98.9 Disorder of the skin and subcutaneous tissue, unspecified (principal)

== ENCOUNTER → 2025-05-18 14:15 | Outpatient (BNVA) | payer MEDICARE, SELFPAY | PROVIDERS: PCP Internal Medicine; Visit Provider Nurse Practitioner Family | DX: L98.9 Disorder of the skin and subcutaneous tissue, unspecified (principal) | CPT/HCPCS: 99212 ==

== ENCOUNTER 2025-07-23 07:26 | Outpatient (REF) | payer MEDICARE, SELFPAY ==
--- OUTSIDE RECORDS SUMMARY | 2025-07-23 07:29 | XMS_ITS | Patient Health Record ---
Author Organization [facility] Address [address] [place] [address] Care Team Providers Care Vigoureux Printer Name Role Phone Theresa GALLAGHER, Анна Primary Care Provider Beau Lucia [phone] Reason For Referral No Information Medications Medication [...] Problem Status W/U Status Risk Notes Problem 818779550 Encounter for screening for malignant neoplasm of colon (Z12.11) Active confirmed Problem 533831849 History of adenomatous polyp of colon (Z86.010) Active confirmed Problem Screening for malignant neoplasm of rectum (714086674) Encounter for screening for malignant neoplasm of rectum (Z12.12) Active confirmed Problem 479790932 Long-term use of aspirin therapy (Z79.82) Active confirmed Plan Of Treatment Future Test Test Name Order Date COLONOSCOPY 08/15/2016 Insurance Providers Payer Name Payer Address Payer Phone Subscriber Number Group Number Insured Name Patient Relationship to Insured Coverage Start Date Coverage End Date [place] [address] [place] [address] [id number] LAUREN HEREDIA Self - patient is the insured [facility] [address] [place], [place] [id number] LAUREN HEREDIA Self - patient is the insured Medical (General) History Medical History History ICD Code Colonoscopy 12-14-2010--2 tub ular adenomas removed, sigmoid diverticulosis, internal hemorrhoids; negative colonoscopy in 2003 Denies MD,DM,CVA,Lung disease,renal dise ase Hypertension Vertigo 05/2016 Surgical History Surgery Date(Month/Year) Laparoscopy for fertility reasons
[2025-07-23 08:24] LABS: Alanine Aminotransferase 21 U/L (0-31); Anion Gap 8 (12-20); Aspartate Amino Transferase 23 U/L (5-31); Blood Urea Nitrogen 18 mg/dL (9-16); Calcium 9.1 mg/dL (8.4-10.2); Carbon Dioxide 32 mmol/L (22-29); Chloride 105 mmol/L (96-108); Cholesterol 227 mg/dL (<200); Estimated Glomerular Filt Rate > 60; HDL Cholesterol 60 mg/dL (>40); Potassium 3.9 mmol/L (3.3-5.1); Sodium 141 mmol/L (135-145); Triglycerides 76 mg/dL (<150)
== END 2025-07-23 07:27 | disposition home or self-care (01) ==
LOC: HO.LAB 07:26
PROVIDERS: PCP Internal Medicine; Visit Provider Internal Medicine
DX: Z51.81 Encounter for therapeutic drug level monitoring (principal); E78.5 Hyperlipidemia, unspecified; I10 Essential (primary) hypertension; M85.89 Other specified disorders of bone density and structure, multiple sites; Z78.0 Asymptomatic menopausal state; Z79.83 Long term (current) use of bisphosphonates
CPT/HCPCS: 36415; 80048; 80061; 82306; 84450; 84460

== ENCOUNTER 2025-07-28 10:51 | Outpatient (AMB) | payer MEDICARE, SELFPAY ==
--- NOTE | 2025-07-28 11:13 | A.OFFPC_ITS ---
Vital Signs 07/28/25 11:17 07/28/25 11:53 Height 5 ft 3 in Weight 120 lb BMI 21.3 BP 146/76 H 130/60 Blood Pressure Location Lt brachial Lt brachial Position Sitting Sitting Respiration 16 Pulse 58 Pulse Source Pulse Oximeter Temp 98.0 F Temp Source Oral Pulse Oximetry (%) 98 Oxygen Delivery Method Room Air Intake Visit Reasons: 6.5m follow up Intake Note: Pt is here today for her 6.5 mo. f/u Allergies No Known Allergies (No Known Allergies*) Allergy (Verified 07/28/25 11:48) Medication List - Last Reconciled 07/28/25 by Анна Cardenas MD alendronate 70 mg PO QWEEK 3 months amlodipine 2.5 mg PO DAILY aspirin 81 mg PO DAILY cholecalciferol (vitamin D3) 25 mcg PO DAILY fosinopril 40 mg PO DAILY hydrochlorothiazide 25 mg PO QAM lifitegrast 5% drps ophthalmic (eye) ONCE penciclovir 1% (Denavir) 1 appl topical Q2H PRN 4 days Tobacco use date assessed: 07/28/25 Fall risk assessment: No Falls in past year Last assessed Fall Risk: 07/28/25 Dental Screening Dental Screen Date: 07/28/25 Did you have a dental visit in the last 12 months?: Yes Did you have a dental problem in the last 6 months where you did not have access to dental care?: No Was dental information given to patient?: Patient has dentist HPI 6.5m follow up HPI Details The patient is an 84-year-old female here for follow up on her hypertension. The patient reports a history of melanoma, initially noticed about a week after her last visit, which she initially thought was a leg injury. A biopsy confirmed melanoma, and she is scheduled for surgery on September [address] Lee at [facility]. The melanoma is described as slow-growing with no evidence of spreading, and there is a family history of skin cancer in her sister. The patient has a history of hypertension, managed with amlodipine, fosinopril, and hydrochlorothiazide. Her blood pressure was recorded at 130/60 mmHg during the visit, and she attributes previous elevated readings to stress and travel. The patient also reports a recent episode of contact dermatitis, characterized by a rash on her arm, which was suspected to be an allergic reaction. She was treated with doxycycline as a precaution for Lyme disease, although it was believed to be contact dermatitis. Additionally, the patient has a mild allergy to avocado, which causes itching, and she is aware of the potential for contact dermatitis from other sources. Preventative care measures discussed include vaccinations for flu, COVID-19, and pneumonia, with recommendations to receive them before her upcoming surgery. [facility] Medical History (Updated 07/28/25 @ 11:59 by Анна Cardenas MD) Melanoma in situ of right lower leg Osteopenia of multiple sites Encounter for monitoring alendronate therapy Osteoporosis of lumbar spine Hyperlipidemia LDL goal <130 Recurrent cold sores Menopause Tubular adenoma of colon Hypertension Cataracts, bilateral Female sterility Surgical History History of cataract surgery Family History Father No problems noted. Mother No problems noted. Maternal Grandmother No problems noted. Maternal Aunt Mental health disorder Social History Housing: House Alcohol intake: current Patient Tobacco Use Status: Never used Tobacco e-Cigarette/Vaping Use: Never Used service: No Current occupational status: disabled Cognitive needs: No Hearing needs: No Vision needs: Yes Questionnaire PHQ-9 Over the last 2 weeks, how often have you been bothered by any of the following problems? 1. Little interest or pleasure in doing things: not at all 2. Feeling down, depressed, or hopeless: not at all 3. Trouble falling or staying asleep, or sleeping too much: not at all 4. Feeling tired or having little energy: not at all 5. Poor appetite or overeating: not at all 6. Feeling bad about yourself - or that you are a failure or have let yourself or your family down: not at all 7. Trouble concentrating on things, such as reading the newspaper or watching television: not at all 8. Moving or speaking so slowly that other people could have noticed. Or the opposite - being so fidgety or restless that you have been moving around a lot more than usual: not at all 9. Thoughts that you would be better off or of hurting yourself in some way: not at all Total score: 0 Depression Screening Interpretation: Negative Depression Screening Done: Yes Source: Developed by Drs. Beau Rousseau, Patricia Lind, Elier Hudson and colleagues, with an educational rand from [employer] Thrive Questionnaire Date Thrive assessed: 07/28/25 I am a: Patient What is your living situation today?: I have a steady place to live Within the past 12 months, did the food you bought not last and you didn't have the money to get more?: Never true Within the past 12 months, did you worry whether your food would run out before you got money to buy more?: Never true Do you have trouble paying for medicines?: No Do you have trouble getting transportation to medical appointments?: No Do you have trouble paying your heating and electricity bill?: No Do you have trouble taking care of your child, family member or friend?: No Do you have trouble with day-to-day activities such as bathing, preparing meals, shopping, managing finances, etc.?: No Are you currently unemployed and looking for a job?: No Are you interested in more education?: No Please select the resources that you would like help with: None Currently or been in a relationship where the following occur: No concerns reported THRIVE Score: 0 AUDIT C Alcohol Use Questionnaire (AUDIT-C) 1. How often do you have a drink containing alcohol?: 2-3 times a week 2. How many drinks containing alcohol do you have on a typical day when you are drinking?: 1 or 2 3. How often do you have six or more drinks on one occasion?: Never Total Score: 3 PAVEL-7 AMB Questionnaire PAVEL-7 Date PAVEL - 7 assessed: 01/01/25 Feeling nervous, anxious, or on edge: 0 = Not at all Not being able to stop or control worryin = Not at all Worrying too much about different things: 0 = Not at all Trouble relaxin = Not at all Being so restless that it is hard to sit still: 0 = Not at all Becoming easily annoyed or irritable: 0 = Not at all Feeling afraid as if something awful might happen: 0 = Not at all Total PAVEL-7 score (0-4 normal; 5-9 mild; 10-14 moderate; 15-21 severe): 0 Source: Developed by Drs. Beau Rousseau, Patricia Lind, Elier Hudson and colleagues, with an educational rand from [employer] ([employer]). Review of Systems Const Reports no additional complaints Eyes Denies change in vision ENT Reports no additional complaints Card Denies chest pain, Denies rapid heart rate, Denies irregular heart rhythm and Denies dyspnea on exertion Resp Denies dyspnea on exertion GI Reports no additional complaints Reports no additional complaints Musc Reports no additional complaints Skin/Breast Reports as per HPI Neuro Reports no additional complaints Psych Reports no additional complaints Endo Reports no additional complaints Vicente/Lymph Reports no additional complaints Aller/Immun Reports no additional complaints Physical exam (Primary Care) Vital Signs: Last Vital Signs Temp 98.0 F 07/28/25 11:17 Pulse 58 07/28/25 11:17 Resp 16 07/28/25 11:17 BP 130/60 07/28/25 11:53 Pulse Ox 98 07/28/25 11:17 Oxygen Delivery Method Room Air 07/28/25 11:17 BMI result Body Mass Index 21.3 Tobacco/Smoking Status: Tobacco use Status Tobacco use date assessed 07/28/25 07/28/25 11:14 Patient Tobacco Use Status Never used Tobacco 07/28/25 11:14 e-Cigarette/Vaping Use Never Used 07/28/25 11:14 PHQ-9: PHQ-9 Score PHQ-9: Total score 0 07/28/25 11:49 Depression Screening Interpretation: Negative Thrive Assessment: Date of Thrive Assessment Date Thrive assessed 07/28/25 07/28/25 11:14 Currently or been in a relationship where the following occur: No concerns reported Const Other: Alert oriented x3, no acute distress noted ambulatory normal gait Nutritional Appearance: average body habitus [facility] General nose exam: Normal external nose present Face and sinus: Yes face symmetric Mouth: Normal oral and palatal mucosa present and moist mucous membranes Eyes General: appearance normal, both eyes and all related structures Neck Neck: Yes full ROM, Yes no lymphadenopathy and Yes supple Resp Auscultation: clear to auscultation bilaterally Cardio Other: S1-S2 present regular rate and rhythm GI Palpation (GI): Soft to palpation, nontender and no guarding Auscultation: normal bowel sounds General: Yes no CVA tenderness Back/Spine/Pelvis Back: no CVA tenderness and No back tenderness Neuro General: gait normal, tone normal, moves all extremities and Normal light touch and pain sensation Extrem General: Yes normal to inspection, Yes full ROM, Yes no joint enlargement, Yes no clubbing, cyanosis or edema and Yes normal gait Psych Appearance: grossly normal and well kempt Mental Status: mental status grossly normal Speech and movement: Normal speech and movement present Affect: normal affect Results Reviewed Results Reviewed: Name: Krystina Heredia Age/Sex: 84/F : 1940 Unit#: [id number] Attend Dr: Анна Cardenas MD Re07/23/25 Status: DEP [facility]: SPEC : [id number] AIME: 07/23/25 STATUS: COMP REQ : [id number] RECD: 07/23/[address]: Анна Cardenas MD COMP: 07/23/25 ENTERED: 07/23/25 [facility]: ORDERED: Met Prof Fast, AST, ALT, Lipid Panel, Vitamin D 25-OH Test Result Flag Reference Sodium 141 135-145 mmol/L Potassium 3.9 3.3-5.1 mmol/L CL 105 96-108 mmol/L CO2 32 H 22-29 mmol/L Gap 8 L 12-20 BUN 18 H 9-16 mg/dL Creat 0.66 0.5-1.4 mg/dL eGFR > 60 Chronic Kidney Disease: Estimated GFR < 60 m L/min/1.73m2 Severe Kidney Disease: Estimated GFR < 15 mL/min/1.73m2 FBS 98 60-99 mg/dL CA 9.1 8.4-10.2 mg/dL AST (GOT) 23 5-31 U/L ALT (GPT) 21 0-31 U/L Triglyceride 76 <150 mg/dL Desirable Triglyceride: less than 150 mg/dL Borderline High Triglyceride 150-199 mg/dL High Triglyceride: 200-499 mg/dL Very High Triglyceride: greater than or equal to 5OO mg/dL Cholesterol 227 H <200 mg/dL Desirable Cholesterol: less than 200 mg/dL Borderline High Cholesterol: 200-239 mg/dL High Cholesterol: greater than 239 mg/dL LDL Calculated 152 H <100 mg/dL Desirable LDL: less than 100 mg/dL Near Optimal/Above Optimal LDL: 110-129 mg/dL Borderline High LDL: 130-159 mg/dL High LDL: 160-189 mg/dL Very High LDL: greater than or equal to 190 mg/dL HDL 60 >40 mg/dL Desirable HDL: greater than 40 mg/dL Note: This HDL assay may give artificially low results in patients with liver disease. Vitamin D 25-OH 71.2 >30 ng/mL Health Based Reference Values* < 20 ng/mL Deficient 20-30 ng/mL Insufficient > 30 ng/mL Sufficient Coding Level of Care Code Est Pt Level 4 (15012) Complex EM visit Add On G2211 Diagnoses Melanoma in situ of right lower leg D03.71 Primary hypertension I10 Hypertension type: primary hypertension Hyperlipidemia LDL goal <130 E78.5 Osteopenia of multiple sites M85.89 Assessment & Plan Assessment & Plan (1) Melanoma in situ of right lower leg: Comment: seen on biopsy April 2025 by [facility], referred to [facility], Dr Romero , surgery on 09/01/2025 Code(s): D03.71 - Melanoma in situ of right lower limb, including hip Category: Medical Plan: Scheduled for surgery on 09/01/[address] Romero at [facility] (2) Hypertension: Code(s): I10 - Essential (primary) hypertension Category: Medical Qualifiers: Hypertension type: primary hypertension Qualified Code(s): I10 - Essential (primary) hypertension Plan: Blood pressure at goal of less than 130/80. Continue with amlodipine 2.5 mg daily and lisinopril 40 mg once a day as hydrochlorothiazide 25 mg daily. Reinforced importance of following a low sodium diet, getting regular exercise, and lowering stress levels. (3) Hyperlipidemia LDL goal <130: Code(s): E78.5 - Hyperlipidemia, unspecified Category: Medical Plan: Reviewed recent fasting lipid profile with patient with elevated LDL cholesterol elevated. Does not want to be placed on statins. Continue adherence to low- cholesterol diet and regular exercise, at least 30 minutes 3 to 4 times a week. Advised patient to make healthy food choices, eat more fruits, vegetables, whole grains, wild caught fish and low-fat dairy. Limit amount of meat and fried or fatty food products, as well as processed foods and fast foods. Follow-up scheduled with repeat fasting lipid panel in 6 months. (4) Osteopenia of multiple sites: Code(s): M85.89 - Other specified disorders of bone density and structure, multiple sites Category: Medical Plan: Continue adherence to healthy eating habits, get adequate calcium from dietary sources, continue with vitamin-D 3 supplements. Reinforced importance of doing regular weight-bearing exercise. Orders: Orders Basic Metabolic Panel Fasting 01/20/26 E78.5 - Hyperlipidemia, unspecified, I10 - Essential (primary) hypertension, M85.89 - Other specified disorders of bone density and structure, multiple sites, Z51.81 - Encounter for therapeutic drug level monitoring, Z78.0 - Asymptomatic menopausal state, Z79.83 - group home (current) use of bisphosphonates Aspartate Amino Transferase 01/20/26 E78.5 - Hyperlipidemia, unspecified, I10 - Essential (primary) hypertension, M85.89 - Other specified disorders of bone density and structure, multiple sites, Z51.81 - Encounter for therapeutic drug level monitoring, Z78.0 - Asymptomatic menopausal state, Z79.83 - salvage determiner (current) use of bisphosphonates Alanine Aminotransferase 01/20/26 E78.5 - Hyperlipidemia, unspecified, I10 - Essential (primary) hypertension, M85.89 - Other specified disorders of bone density and structure, multiple sites, Z51.81 - Encounter for therapeutic drug level monitoring, Z78.0 - Asymptomatic menopausal state, Z79.83 - group home (current) use of bisphosphonates Vitamin D 25-OH Total 01/20/26 E78.5 - Hyperlipidemia, unspecified, I10 - Essential (primary) hypertension, M85.89 - Other specified disorders of bone density and structure, multiple sites, Z51.81 - Encounter for therapeutic drug level monitoring, Z78.0 - Asymptomatic menopausal state, Z79.83 - salvage determiner (current) use of bisphosphonates Lipid Panel 01/20/26 E78.5 - Hyperlipidemia, unspecified, I10 - Essential (primary) hypertension, M85.89 - Other specified disorders of bone density and structure, multiple sites, Z51.81 - Encounter for therapeutic drug level monitoring, Z78.0 - Asymptomatic menopausal state, Z79.83 - group home (current) use of bisphosphonates
[2025-07-28 11:17] VITALS: BP 146/76; PULSE 58; RESP 16; TEMP 36.7; O2SAT 98; BMI 21.3
[2025-07-28 11:53] VITALS: BP 130/60
--- OUTSIDE RECORDS SUMMARY | 2025-07-28 13:21 | XMS_ITS | Patient Health Record ---
Author Organization [facility] Address [address] [place] [address] Care Team Providers Care Director Strategic Planning Name Role Phone Theresa GALLAGHER, Анна Primary Care Provider Beau Lucia [phone] Reason For Referral No Information Medications Medication [...] Problem Status W/U Status Risk Notes Problem [id number] Encounter for screening for malignant neoplasm of colon (Z12.11) Active confirmed Problem [id number] History of adenomatous polyp of colon (Z86.010) Active confirmed Problem Screening for malignant neoplasm of rectum (769253571) Encounter for screening for malignant neoplasm of rectum (Z12.12) Active confirmed Problem [id number] Long-term use of aspirin therapy (Z79.82) Active confirmed Plan Of Treatment Future Test Test Name Order Date COLONOSCOPY 08/15/2016 Insurance Providers Payer Name Payer Address Payer Phone Subscriber Number Group Number Insured Name Patient Relationship to Insured Coverage Start Date Coverage End Date MEDICARE [place] [address] [place] [address] [id number] LAUREN HEREDIA Self - patient is the insured [facility] [address] [place], [place] [id number] LAUREN HEREDIA Self - patient is the insured Medical (General) History Medical History History ICD Code Colonoscopy 12-14-2010--2 tub ular adenomas removed, sigmoid diverticulosis, internal hemorrhoids; negative colonoscopy in 2003 Denies AR,DM,CVA,Lung disease,renal dise ase Hypertension Vertigo 05/2016 Surgical History Surgery Date(Month/Year) Laparoscopy for fertility reasons
== END 2025-07-28 15:19 | disposition home or self-care (01) ==
LOC: HO.HMCC 10:52
PROVIDERS: PCP Internal Medicine; Visit Provider Internal Medicine
DX: D03.71 Melanoma in situ of right lower limb, including hip (principal); I10 Essential (primary) hypertension; E78.5 Hyperlipidemia, unspecified; M85.89 Other specified disorders of bone density and structure, multiple sites

== ENCOUNTER → 2025-07-28 10:51 | Outpatient (BNVA) | payer MEDICARE, SELFPAY | PROVIDERS: PCP Internal Medicine; Visit Provider Internal Medicine | DX: D03.71 Melanoma in situ of right lower limb, including hip (principal); I10 Essential (primary) hypertension; L25.9 Unspecified contact dermatitis, unspecified cause; E78.5 Hyperlipidemia, unspecified; M85.89 Other specified disorders of bone density and structure, multiple sites; Z78.0 Asymptomatic menopausal state; Z79.83 Long term (current) use of bisphosphonates | CPT/HCPCS: 96127; 99212 ==

== ENCOUNTER 2025-10-09 10:57 | Outpatient (AMB) | payer MEDICARE, SELFPAY ==
--- NOTE | 2025-10-09 11:28 | MHC.OFFWIV ---
Intake Vital Signs 10/09/25 11:29 10/09/25 12:56 10/09/25 12:57 10/09/25 12:57 Height 5 ft 3 in Weight 124 lb BMI 22.0 BP 130/82 150/74 H 148/80 H 144/86 H Blood Pressure Location Lt brachial Lt brachial Lt brachial Lt brachial Position Sitting Supine Sitting Standing Pulse 68 72 73 78 Pulse Source Pulse Oximeter Pulse Oximeter Pulse Oximeter Pulse Oximeter Pulse Oximetry (%) 96 98 98 97 Oxygen Delivery Method Room Air Room Air Room Air Room Air Intake Visit Reasons: EP vertigo? Dizzy, nausea Intake Note: Patient presents c/o vertigo. Patient Tobacco Use Status: Never used Tobacco Allergies No Known Allergies (No Known Allergies*) Allergy (Verified 10/09/25 11:31) HPI HPI Comments History of Present Illness Details Patient is a 85yo F who presents to office with dizziness Hx of vertigo in the past when raking and doing activities She said yesterday she was cleaning and felt as time passed she felt dizzy when getting up quickly from leaning over Pt noticed dizziness continued but she kept working Dizziness persistent throughout the night Had left over meclizine from 2021 and took 1 tablet around 3am She said when she woke up later in the morning she still felt dizzy She said mix of room spinning (more prevalent last night which triggered the meclizine usage), but also has sense of going to fall over. Pt said in past when she took meclizine, she only required one dose Associated nausea without vomiting No congestion, ear pain, ST No recent illness No ear ringing Denies new medications or change in dosage Worsens when she moves side to side and leaning back it gets worse She feels on verge of dizziness when she moves her head This week she had a couple of days where she was very active without dizziness Pt denies CP, SOB, syncope, LOC, head trauma Denies weakness in arms or legs but admits to generalized fatigue SHe drove herself here. She lives alone. [facility] Medical History (Updated 10/09/25 @ 12:18 by Chasity Holden PA-C) Melanoma in situ of right lower leg Osteopenia of multiple sites Encounter for monitoring alendronate therapy Osteoporosis of lumbar spine Hyperlipidemia LDL goal <130 Recurrent cold sores Menopause Tubular adenoma of colon Hypertension Cataracts, bilateral Female sterility Surgical History History of cataract surgery Family History Father No problems noted. Mother No problems noted. Maternal Grandmother No problems noted. Maternal Aunt Mental health disorder Social History Housing: House Alcohol intake: current Patient Tobacco Use Status: Never used Tobacco e-Cigarette/Vaping Use: Never Used service: No Current occupational status: disabled Cognitive needs: No Hearing needs: No Vision needs: Yes Review of Systems Const Denies chills, Denies fever(s), Denies frequent falls, Denies headache(s), Reports lethargy, Reports poor appetite and Denies weakness Eyes Denies blurry vision, Denies diplopia and Reports other (hx of dry eyes) ENT Reports dizziness, Denies otalgia, Denies facial pain, Denies headache(s), Denies nasal congestion, Denies tinnitus and Denies sore throat Card Denies chest pain, Denies syncope, Denies rapid heart rate and Denies dyspnea Resp Denies cough and Denies dyspnea GI Denies abdominal pain, Denies diarrhea and Denies vomiting Musc Denies tingling Neuro Denies confusion, Reports dizziness, Denies syncope, Denies frequent falls, Denies headache(s), Denies tingling, Denies paresthesias and Denies weakness Psych Denies confusion Physical Exam Exam Exam: General: Non-toxic, NAD. Speaking full sentences. Skin: Warm dry throughout Eye: PERRL, EOMI without nystagmus. HENT: Airway patent. Uvula midline. No pharyngeal erythema or edema. No GROMMET MACHINE OPERATOR. Bilateral canals clear. TM non-erythematous, non-bulging. No TM perforation or hemotympanum noted. Respiratory: CTA bilaterally. No wheezes, rales or rhonchi Cardiac: RRR. No murmur MSK: No midline tenderness. Full ROM extremities. Neurology: A/O x 3. CN 2-12 grossly intact. Negative pronator drift. + swaying but able to maintain balance with rhomberg. Finger to nose tracing slow but equal bilaterally. No aphasia or facial droop. Equal strength 5/5 with lockstitch zipper setter. Gait without abnormality. Pt feels dizzy upon lateral head rotation and when standing. Psych: Good mood and affect Vital Signs: Last Vital Signs Pulse 78 10/09/25 12:57 BP 144/86 H 10/09/25 12:57 Pulse Ox 97 10/09/25 12:57 Oxygen Delivery Method Room Air 10/09/25 12:57 BMI result Body Mass Index 22.0 Const General: No confusion Orientation/consciousness: No confusion Neuro General: No confusion Results AMB Random Glucose (hemocue) AMB Random Glucose (hemocue) 80 mg/dL Last Edit by Gail Pollard CMA on 10/09/25 12:42 Results Reviewed Results Reviewed: Laboratory Last Values Random Glu (Clinic) 80 mg/dL 10/09/25 12:42 Assessment & Plan Assessment & Plan (1) Dizziness: Code(s): R42 - Dizziness and giddiness Plan: Patient seen and evaluated. She started with dizziness yesterday but it has been persistent despite meclizine EKG: normal sinus. No stemi, 63bpm Orthostatic vital signs:wnl 150/74 72bpm laying, 148/80 73 sitting, 144/86 78 standing Glucose: 80 Long discussion with pt about concern for CVA but she refused to go to ER. She is aware that it is not ruled out and symptoms could worsen She refused and signed AMA; see document in chart Discussed continual/worse symptoms go to ER but pt is aware that is the recommendation currently She also was educated not to operate car/drive due to symptoms. Refill meclizine given but pt advised may not resolve symptoms if concern CVA Patient gave verbal understanding and had no additional questions at time of discharge All questions answered Orders: Orders AMB Random Glucose (hemocue) Today R42 - Dizziness and giddiness, Z13.9 - Encounter for screening, unspecified AMB EKG-In Office Today R42 - Dizziness and giddiness Medications: New meclizine 25 mg PO BID PRN 10 tabs 0RF dizziness Coding Level of Care Code Est Pt Level 4 (13966) Diagnoses Dizziness R42
[2025-10-09 11:29] VITALS: BP 130/82; PULSE 68; O2SAT 96; BMI 22.0
--- OUTSIDE RECORDS SUMMARY | 2025-10-09 12:52 | XMS_ITS | Patient Health Record ---
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 Name Role Phone Theresa GALLAGHER, Анна Primary Care Provider Beau Lucia Unavailable [phone] Reason For Referral No Information Medications Medication SIG (Take, Route, Frequency, Duration) Notes Start Date End Date Status Aspirin Adult Low Dose 81 MG Tablet Delayed Release 1 tablet Orally Once a day Active hydroCHLOROthiazide 12.5 MG Capsule 1 tablet Orally Once a day Active Fosinopril Sodium 40 MG Tablet 1 tablet Orally Once a day Active Social History Social History Additional Details Category Social Info Options Details Miscellaneous: Marital status: Occupation: retired Section Notes: Nonsmoker; 1-2 glasses wine with dinner Problems Problem Type SNOMED Code ICD Code Onset Dates Problem Status W/U Status Risk Notes Problem Screening for malignant neoplasm of colon (684818659) Encounter for screening for malignant neoplasm of colon (Z12.11) Active confirmed Problem History of adenomatous polyp of colon (605069823) History of adenomatous polyp of colon (Z86.010) Active confirmed Problem Screening for malignant neoplasm of rectum (418957847) Encounter for screening for malignant neoplasm of rectum (Z12.12) Active confirmed Problem Long-term current use of antiplatelet drug (752756396122951 ) Long-term use of aspirin therapy (Z79.82) Active confirmed Plan Of Treatment Future Test Test Name Order Date COLONOSCOPY 08/15/2016 Insurance Providers Payer Name Payer Address Payer Phone Subscriber Number Group Number Insured Name Patient Relationship to Insured Coverage Start Date Coverage End Date MEDICARE OF [place] [address] [place] [address] [id number] LAUREN HEREDIA Self - patient is the insured [facility] [address] [place], [place] [id number] LAUREN HEREDIA Self - patient is the insured Medical (General) History Medical History History ICD Code Colonoscopy 12-14-2010--2 tub ular adenomas removed, sigmoid diverticulosis, internal hemorrhoids; negative colonoscopy in 2003 Denies [place],DM,CVA,Lung disease,renal dise ase Hypertension Vertigo 05/2016 Surgical History Surgery Date(Month/Year) Laparoscopy for fertility reasons
[2025-10-09 12:56] VITALS: BP 150/74; PULSE 72; O2SAT 98
[2025-10-09 12:57] VITALS: BP 144/86; BP 148/80; PULSE 73; PULSE 78; O2SAT 97; O2SAT 98
== END 2025-10-09 13:24 | disposition home or self-care (01) ==
PROVIDERS: PCP Internal Medicine; Visit Provider Physician Assistant
DX: Z13.9 Encounter for screening, unspecified (principal); R42 Dizziness and giddiness

== ENCOUNTER → 2025-10-09 10:57 | Outpatient (BNVA) | payer MEDICARE, SELFPAY | PROVIDERS: PCP Internal Medicine; Visit Provider Physician Assistant | DX: R42 Dizziness and giddiness (principal); R11.0 Nausea | CPT/HCPCS: 82948; 99212 ==